=== PATIENT | male | born 1975 | race Caucasian/White ===

== ENCOUNTER 2017-08-21 20:41 | Inpatient (IN) | payer MEDICARE, MEDICAID ==
[~2017-08-21] VITALS: Ht 182.9 cm; Wt 138.3 kg
[~2017-08-21 20:41] MED LIST: CARVEDILOL12.5 MG PO; CLEOCIN HCL150 MG PO; FENTANYL PA50 MCG/HR TRANSDERM; HUMALOG100 UNIT/2 SUBQ; HYDRALAZINE 2525 MG PO; LANTUS100 UNIT/M SUBQ; LEVAQUIN 250 M250 MG PO; LISINOPRIL10 MG PO; NEURONTIN 300300 M1 PO; NORVASC 5 MG TAB5 MG PO; OXYCODONE HCL5 MG PO; OXYCONTIN10 M1 PO; REGLAN 5 MG TAB5 MG PO; TRAMADOL 50 MG50 MG PO
[2017-08-21 21:00] VITALS: BP 191/96
[2017-08-21 22:37] LABS: HEMATOCRIT 30.7 % (42.0-52.0); MCH 32.5 pg (26.0-34.0); MCHC 32.5 g/dL (28.0-37.0); MCV 100.1 fL (80.0-100.0); MPV 6.8 fl. (7.2-11.1); RBC 3.07 mil/uL (4.50-6.00); RDW-CV 16.6 % (10.5-14.5); WBC 6.1 thou/uL (4.0-11.0)
[2017-08-21 22:43] LABS: CALCIUM 8.8 mg/dL (8.5-10.1); CREATININE 11.3 mg/dL (0.6-1.3); POTASSIUM 5.8 mmol/L (3.5-5.1)
[2017-08-21 22:47] LABS: ALBUMIN 2.9 g/dL (3.4-5.0); TOTAL BILIRUBIN 1.2 mg/dL (<0.1-1.0); TOTAL PROTEIN 8.1 g/dL (6.4-8.2)
[2017-08-21 23:45] VITALS: BP 176/99
[2017-08-22 04:00] VITALS: BP 150/81
[2017-08-22 08:06] VITALS: BP 148/83
[2017-08-22 08:44] LABS: URINE BILIRUBIN NEGATIVE (Negative); URINE BLOOD TRACE (Negative); URINE CLARITY CLEAR; URINE COLOR YELLOW; URINE GLUCOSE-RANDOM 1+ (Negative); URINE KETONES NEGATIVE (Negative); URINE LEUKOCYTES-REFLEX NEGATIVE (Negative); URINE NITRITE-REFLEX NEGATIVE (Negative); URINE PROTEIN 3+ (Negative); URINE SPECIFIC GRAVITY 1.015 (1.005-1.030); URINE UROBILINOGEN 0.2 E.U./dl (0.2-1.0)
[2017-08-22 08:54] LABS: AMP/METHAMP Negative (Negative); BARBITURATES Negative (Negative); BENZODIAZEPINES Negative (Negative); COCAINE Negative (Negative); METHADONE Negative (Negative); OPIATES POSITIVE (Negative); PCP Negative (Negative); THC Negative (Negative)
[2017-08-22 09:05] LABS: HYALINE CASTS 0-3 Few /LPF (None Seen); MUCUS 0-3 Light strn/LPF (None Seen); SQUAMOUS >10 Many /LPF (0-3)
[2017-08-22 09:06] LABS: CRYSTALS None Seen /LPF (None Seen); URINE RBC 3-10 Few /HPF (0-2); URINE WBC-REFLEX 6-15 Few /HPF (0-5)
[2017-08-22 09:07] LABS: BACTERIA-REFLEX None Seen /HPF (None Seen)
[2017-08-22 16:45] VITALS: BP 147/83
[2017-08-22 22:00] VITALS: BP 157/84
[2017-08-22 23:01] LABS: HEMATOCRIT 26.9 % (42.0-52.0); HEMOGLOBIN 8.9 gm/dL (14.0-18.0); MCH 32.3 pg (26.0-34.0); MCHC 32.9 g/dL (28.0-37.0); MCV 98.2 fL (80.0-100.0); MPV 6.4 fl. (7.2-11.1); NUCLEATED RBCS 0 /100WBC; PLATELET COUNT* 172 thou/uL (150-400); RBC 2.74 mil/uL (4.50-6.00); RDW-CV 16.1 % (10.5-14.5); WBC 6.5 thou/uL (4.0-11.0)
[2017-08-22 23:34] LABS: ABSOLUTE EOSINOPHILS 0.5 thou/uL (0.0-0.7); ABSOLUTE LYMPHOCYTES 0.8 thou/uL (0.8-5.3); ABSOLUTE MONOCYTES 0.7 thou/uL (0.0-1.2); ABSOLUTE NEUTROPHILS 4.5 thou/uL (1.6-8.1); ANISOCYTOSIS 1+; PLATELET ESTIMATE ADEQUATE; TOXIC GRANULATION 1+
[2017-08-23 04:00] VITALS: BP 155/86
[2017-08-23 05:57] LABS: ABSOLUTE BASOPHILS 0.1 thou/uL (0.0-0.2); ABSOLUTE EOSINOPHILS 0.4 thou/uL (0.0-0.7); ABSOLUTE LYMPHOCYTES 0.9 thou/uL (0.8-5.3); ABSOLUTE MONOCYTES 0.9 thou/uL (0.0-1.2); ABSOLUTE NEUTROPHILS 4.2 thou/uL (1.6-8.1); EOSINOPHILS 5.7 %; HEMATOCRIT 25.3 % (42.0-52.0); HEMOGLOBIN 8.4 gm/dL (14.0-18.0); LYMPHOCYTES 13.4 %; MCH 32.6 pg (26.0-34.0); MCHC 33.2 g/dL (28.0-37.0); MCV 98.3 fL (80.0-100.0); MONOCYTES 13.8 %; MPV 6.7 fl. (7.2-11.1); NUCLEATED RBCS 0 /100WBC; PLATELET COUNT* 172 thou/uL (150-400); POLYS 66.1 %; RBC 2.57 mil/uL (4.50-6.00); RDW-CV 16.6 % (10.5-14.5); WBC 6.4 thou/uL (4.0-11.0)
[2017-08-23 06:34] LABS: CALCIUM 8.4 mg/dL (8.5-10.1); POTASSIUM 4.9 mmol/L (3.5-5.1)
[2017-08-23 08:04] VITALS: BP 145/78
--- NOTE | 2017-08-23 11:52 | CON ---
[address] [address] CONSULTATION Name: SRIDEVI HI Room: [address] IN .R.#: [id number] Admission: 08/21/17 Attend Phys: Uvaldo Vyas MD Discharge: Date of : 75 Report #: [id number] THIS REPORT FOR: //name// CC: Uvaldo Linares CONSULTING PHYSICIAN: Uvaldo Vyas MD. REASON FOR CONSULTATION: End-stage kidney disease. HISTORY OF PRESENT ILLNESS: A 42-year-old gentleman who was admitted with anasarca and also complains of abdominal discomfort. He normally dialyzes Tuesdays, and Saturdays. He otherwise has no complaints at present time. REVIEW OF SYSTEMS: Constitutional, psych, heme, eyes, ENT, respiratory, cardiac, GI, , endocrine, all negative except as documented above. PAST MEDICAL HISTORY: End-stage kidney disease, on hemodialysis Tuesdays, , Saturdays at the [facility] dialysis unit; insulin-dependent diabetes; hypertension; history of diabetic foot ulcers. SOCIAL HISTORY: Former smoker. FAMILY HISTORY: Not pertinent in this 42-year-old gentleman. CURRENT MEDICATIONS: Reviewed. PSYCHIATRIC: Awake, alert. PHYSICAL EXAMINATION: VITAL SIGNS: Blood pressure 148/83, pulse 83, temperature 37.0. GENERAL: No acute distress. EYES: Extraocular movements intact. EARS: Externally normal. CARDIOVASCULAR: Regular rate. LUNGS: Diminished breath sounds. ABDOMEN: Soft. LYMPHATICS: Chronic bilateral lower extremity edema with stasis changes. LABORATORY DATA: White cell count 6.1, hemoglobin 10, platelets 180. Sodium 137, potassium 5.8, chloride 100, bicarbonate 29, BUN 60, creatinine 11.3, glucose 100, calcium 8.8. ASSESSMENT AND PLAN: 1. End-stage kidney disease on hemodialysis Tuesdays, , Saturdays at the [facility] dialysis unit. We will dialyze today [place] [address] CONSULTATION Name: SRIDEVI HI Room: [address] IN [facility].#: [id number] Admission: 08/21/17 Attend Phys: Uvaldo Vyas MD Discharge: Date of : 75 Report #: [id number] dialysis. 2. Hyperkalemia. We will dialyze again with lower potassium bath. 3. Chronic lower extremity edema. Ultrafilter as tolerated. Thank you for requesting my opinion in the care and management of this patient. <ELECTRONICALLY SIGNED> By: Brie Love MD 08/23/17 1152 1233 1937Acesario Love MD /nt
[2017-08-23 12:37] VITALS: BP 149/86
[2017-08-23 16:48] VITALS: BP 137/74
[2017-08-23 20:30] VITALS: BP 156/80
[2017-08-23 23:35] VITALS: BP 166/90
[2017-08-24 04:00] VITALS: BP 170/92
[2017-08-24 05:32] VITALS: BP 177/96
[2017-08-24 06:00] LABS: CALCIUM 8.6 mg/dL (8.5-10.1); PHOSPHORUS* 7.1 mg/dL (2.5-4.9); POTASSIUM 5.1 mmol/L (3.5-5.1)
[2017-08-24 06:02] LABS: CREATININE 10.4 mg/dL (0.6-1.3)
[2017-08-24 08:16] VITALS: BP 175/92
[2017-08-24 14:19] VITALS: BP 175/92
== END 2017-08-24 14:35 | disposition home or self-care (01) | DRG 640 ==
LOC: M.2W 20:41
PROVIDERS: Family Medicine; Internal Medicine Nephrology; ADMIT Internal Medicine
PROC: 5A1D70Z Performance of Urinary Filtration, Intermittent, Less than 6 Hours Per Day (ICD-10-PCS; principal; 2017-08-22)
DX: E87.70 Fluid overload, unspecified (principal); N18.6 End stage renal disease; I12.0 Hypertensive chronic kidney disease with stage 5 chronic kidney disease or end stage renal disease; F11.20 Opioid dependence, uncomplicated; E44.1 Mild protein-calorie malnutrition; R60.1 Generalized edema; Z99.2 Dependence on renal dialysis; E11.22 Type 2 diabetes mellitus with diabetic chronic kidney disease; Z79.4 Long term (current) use of insulin; E87.5 Hyperkalemia; R60.0 Localized edema; F17.210 Nicotine dependence, cigarettes, uncomplicated; Z91.19 Patient's noncompliance with other medical treatment and regimen

== ENCOUNTER 2017-10-06 10:12 | Inpatient (IN) | payer MEDICARE, MEDICAID ==
[~2017-10-06] VITALS: Ht 182.9 cm; Wt 129.3 kg
[2017-10-06 10:18] VITALS: BP 188/101
[2017-10-06 10:44] LABS: HEMATOCRIT 28.2 % (42.0-52.0); HEMOGLOBIN 9.4 gm/dL (14.0-18.0); MCH 31.7 pg (26.0-34.0); MCHC 33.2 g/dL (28.0-37.0); MCV 95.3 fL (80.0-100.0); MPV 6.6 fl. (7.2-11.1); NUCLEATED RBCS 0 /100WBC; PLATELET COUNT* 208 thou/uL (150-400); RBC 2.96 mil/uL (4.50-6.00); RDW-CV 16.8 % (10.5-14.5); WBC 8.5 thou/uL (4.0-11.0)
[2017-10-06 10:50] LABS: CALCIUM 8.4 mg/dL (8.5-10.1)
[2017-10-06 10:52] LABS: POTASSIUM 6.1 mmol/L (3.5-5.1)
[2017-10-06 10:56] LABS: ALBUMIN 2.9 g/dL (3.4-5.0); TOTAL BILIRUBIN 1.2 mg/dL (<0.1-1.0); TOTAL PROTEIN 8.3 g/dL (6.4-8.2); TROPONIN-I LEVEL 0.07 ng/mL (<0.06)
[2017-10-06 10:58] LABS: INR 1.2
[2017-10-06 11:06] LABS: ABSOLUTE BASOPHILS 0.1 thou/uL (0.0-0.2); ABSOLUTE EOSINOPHILS 0.5 thou/uL (0.0-0.7); ABSOLUTE LYMPHOCYTES 0.6 thou/uL (0.8-5.3); ABSOLUTE MONOCYTES 0.8 thou/uL (0.0-1.2); ABSOLUTE NEUTROPHILS 6.5 thou/uL (1.6-8.1); HYPOCHROMASIA 1+; PLATELET ESTIMATE ADEQUATE
[2017-10-06 11:48] VITALS: BP 165/84
[2017-10-06 12:08] VITALS: BP 167/86
--- NOTE | 2017-10-06 16:24 | EKG ---
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 : 1975 Requested By: Jesus Marin Order Number: [id number] MD: Immanuel Malave Measurements Intervals [place] Rate: 93 P: 43 MT: 191 QRS: 27 QRSD: 80 T: 37 QT: 353 QTc: 440 Interpretive Statements Sinus rhythm Probable left atrial enlargement septal q waves Compared to ECG 06/22/2017 13:01:31 septal q waves noted Electronically Signed On 10-06-2017 16:24:30 CDT by Immanuel Malave [email or web address] <ELECTRONICALLY SIGNED> By: Immanuel Malave MD, [facility] 10/06/17 1624 1033 1033 Immanuel Malave MD, [facility] /EPI
[2017-10-06 20:00] VITALS: BP 103/63
[2017-10-07] VITALS: BP 142/68
[2017-10-07 04:00] VITALS: BP 146/77
[2017-10-07 04:59] LABS: ABSOLUTE BASOPHILS 0.1 thou/uL (0.0-0.2); ABSOLUTE EOSINOPHILS 0.4 thou/uL (0.0-0.7); ABSOLUTE LYMPHOCYTES 0.8 thou/uL (0.8-5.3); ABSOLUTE MONOCYTES 0.9 thou/uL (0.0-1.2); ABSOLUTE NEUTROPHILS 4.9 thou/uL (1.6-8.1); BASOPHILS 1.1 %; EOSINOPHILS 6.2 %; HEMATOCRIT 26.8 % (42.0-52.0); LYMPHOCYTES 11.6 %; MCH 31.7 pg (26.0-34.0); MCHC 33.6 g/dL (28.0-37.0); MCV 94.5 fL (80.0-100.0); MONOCYTES 12.4 %; MPV 6.6 fl. (7.2-11.1); NUCLEATED RBCS 0 /100WBC; PLATELET COUNT* 217 thou/uL (150-400); POLYS 68.7 %; RBC 2.84 mil/uL (4.50-6.00); RDW-CV 16.7 % (10.5-14.5); WBC 7.2 thou/uL (4.0-11.0)
[2017-10-07 05:29] LABS: CALCIUM 8.9 mg/dL (8.5-10.1); POTASSIUM 5.5 mmol/L (3.5-5.1)
[2017-10-07 08:05] VITALS: BP 134/78
[2017-10-07 12:10] VITALS: BP 147/77
[2017-10-07 20:00] VITALS: BP 166/89
[2017-10-08 03:57] VITALS: BP 115/58
[2017-10-08 08:15] VITALS: BP 153/86
--- NOTE | 2017-10-08 15:27 | CON ---
[facility] [address] [place] [address] CONSULTATION Name: SRIDVEI HI Room: [facility] IN M.R.#: [id number] Admission: 10/06/17 Attend Phys: Uvaldo Vyas MD Discharge: Date of : 75 Report #: [id number] THIS REPORT FOR: //name// CC: Uvaldo Vyas Gilbert Jacques DATE OF SERVICE: 10/06/2017 REQUESTING PHYSICIAN: Uvaldo Vyas M.D. REASON FOR CONSULTATION: Assistance in providing dialysis. HISTORY OF PRESENT ILLNESS: The patient is a 42-year-old white male with medical history significant for end-stage renal disease, history of noncompliance with dialysis, admitted with fluid overload and my assistance was requested to provide with dialysis. PAST MEDICAL HISTORY: Reviewed. MEDICAL HISTORY: 1. Significant for diabetes mellitus type 2. 2. End-stage renal disease. 3. Hypertension. 4. Recurrent ascites. 5. History of noncompliance. PHYSICAL EXAMINATION: GENERAL: Examined on dialysis. He is awake and alert. VITAL SIGNS: Reviewed. HEENT: Pupils are round. NECK: Supple. LUNGS: Decreased air movements. CARDIOVASCULAR: No pericardial rub. ABDOMEN: Distended, ascites is present. ASSESSMENT: This is a 42-year-old man with end-stage renal disease, admitted with fluid overload. I will provide dialysis while he is in the hospital. <ELECTRONICALLY SIGNED> By: Faraz Upton MD 10/08/17 1527 1507 0227Alexandr Giana Upton MD /nt
[2017-10-08] MEDS ORDERED: GABAPENTIN 100100 MG PO (16:39)
[2017-10-08] MEDS ORDERED: MIRALAX17 GM PO (16:41)
[2017-10-08 16:43] VITALS: BP 153/86
== END 2017-10-08 19:05 | disposition home or self-care (01) | DRG 640 ==
LOC: M.ERS 10:12 → M.2W 11:08 → M.TBA-ER 11:08 → M.2W 11:57
PROVIDERS: Family Medicine; ADMIT Internal Medicine
PROC: 5A1D70Z Performance of Urinary Filtration, Intermittent, Less than 6 Hours Per Day (ICD-10-PCS; principal; 2017-10-06)
DX: E87.79 Other fluid overload (principal); N18.6 End stage renal disease; F11.20 Opioid dependence, uncomplicated; R18.8 Other ascites; I12.0 Hypertensive chronic kidney disease with stage 5 chronic kidney disease or end stage renal disease; E11.22 Type 2 diabetes mellitus with diabetic chronic kidney disease; F17.210 Nicotine dependence, cigarettes, uncomplicated; E87.5 Hyperkalemia; R10.9 Unspecified abdominal pain; G89.29 Other chronic pain; I89.0 Lymphedema, not elsewhere classified; K59.00 Constipation, unspecified; Z99.2 Dependence on renal dialysis; Z79.4 Long term (current) use of insulin; Z91.19 Patient's noncompliance with other medical treatment and regimen

== ENCOUNTER 2017-12-17 10:25 | Inpatient (IN) | payer MEDICARE, MEDICAID ==
[~2017-12-17] VITALS: Ht 180.3 cm; Wt 100.7 kg
[~2017-12-17 10:25] MED LIST changes: +GABAPENTIN 100100 MG PO; +MIRALAX17 GM PO
[2017-12-17 10:26] VITALS: BP 141/71
[2017-12-17 10:42] LABS: ABSOLUTE BASOPHILS 0.1 thou/uL (0.0-0.2); ABSOLUTE EOSINOPHILS 0.3 thou/uL (0.0-0.7); ABSOLUTE MONOCYTES 0.7 thou/uL (0.0-1.2); ABSOLUTE NEUTROPHILS 7.1 thou/uL (1.6-8.1); BASOPHILS 1.3 %; HEMATOCRIT 29.1 % (42.0-52.0); HEMOGLOBIN 9.5 gm/dL (14.0-18.0); LYMPHOCYTES 10.9 %; MCH 30.2 pg (26.0-34.0); MCHC 32.7 g/dL (28.0-37.0); MCV 92.3 fL (80.0-100.0); MONOCYTES 7.5 %; MPV 6.5 fl. (7.2-11.1); NUCLEATED RBCS 0 /100WBC; PLATELET COUNT* 308 thou/uL (150-400); POLYS 77.3 %; RBC 3.15 mil/uL (4.50-6.00); RDW-CV 17.1 % (10.5-14.5); WBC 9.1 thou/uL (4.0-11.0)
[2017-12-17 10:55] LABS: ANION GAP 7 mmol/L (7-16); BUN 69 mg/dL (7-18); CALCIUM 9.2 mg/dL (8.5-10.1); CHLORIDE 97 mmol/L (98-107); CO2 34 mmol/L (21-32); CREATININE 7.9 mg/dL (0.6-1.3); GLUCOSE 125 mg/dL (70-99); POTASSIUM 4.8 mmol/L (3.5-5.1); SODIUM 138 mmol/L (136-145)
[2017-12-17 10:58] LABS: APTT 33.5 Seconds (25.0-31.3); INR 1.4; PROTIME 13.2 Seconds (9.20-11.50)
[2017-12-17 11:07] LABS: ALBUMIN 2.5 g/dL (3.4-5.0); ALKALINE PHOSPHATASE 295 U/L (46-116); NT-PRO BRAIN NAT PEPTIDE > 35000 pg/mL (<300); SGOT 20 U/L (15-37); SGPT 19 U/L (30-65); TOTAL BILIRUBIN 0.9 mg/dL (<0.1-1.0); TOTAL PROTEIN 8.2 g/dL (6.4-8.2); TROPONIN-I LEVEL <0.06 ng/mL (<0.06)
--- NOTE | 2017-12-17 15:16 | EKG ---
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1975 Requested By: Isaac Bolden Order Number: [id number] MD: Immanuel Malave Measurements Intervals [place] Rate: 75 P: 56 IL: 209 QRS: 28 QRSD: 83 T: 34 QT: 404 QTc: 452 Interpretive Statements Sinus rhythm Borderline prolonged IL interval Borderline low voltage, extremity leads Compared to ECG 10/06/2017 10:33:29 no change Electronically Signed On 12-17-2017 15:16:22 CDT by Immanuel Malave [email or web address] <ELECTRONICALLY SIGNED> By: Immanuel Malave MD, [facility] 12/17/17 1516 35 35 Immanuel Maalve MD, [facility] /EPI
[2017-12-17 15:43] VITALS: BP 143/73
[2017-12-17 16:00] VITALS: BP 174/98
[2017-12-17 18:00] VITALS: BP 121/64
[2017-12-17 20:00] VITALS: BP 120/65; BP 125/65
[2017-12-17 22:00] VITALS: BP 134/69
[2017-12-18] VITALS (11 sets, daily range): BP systolic 103–147; BP diastolic 43–71
[2017-12-18 08:10] LABS: HEMATOCRIT 28.1 % (42.0-52.0); HEMOGLOBIN 9.2 gm/dL (14.0-18.0); MCH 30.5 pg (26.0-34.0); MCV 92.6 fL (80.0-100.0); RBC 3.03 mil/uL (4.50-6.00); RDW-CV 17.2 % (10.5-14.5); WBC 9.5 thou/uL (4.0-11.0)
[2017-12-18 08:49] LABS: ALBUMIN 2.2 g/dL (3.4-5.0); CALCIUM 8.5 mg/dL (8.5-10.1); MAGNESIUM 2.1 mg/dL (1.8-2.4); POTASSIUM 4.8 mmol/L (3.5-5.1); TOTAL BILIRUBIN 0.8 mg/dL (<0.1-1.0); TOTAL PROTEIN 7.2 g/dL (6.4-8.2)
[2017-12-18 16:34] LABS: URINE BILIRUBIN NEGATIVE (Negative); URINE BLOOD 1+ (Negative); URINE CLARITY CLOUDY; URINE COLOR YELLOW; URINE GLUCOSE-RANDOM TRACE (Negative); URINE KETONES NEGATIVE (Negative); URINE NITRITE-REFLEX NEGATIVE (Negative); URINE PROTEIN 2+ (Negative); URINE UROBILINOGEN 0.2 E.U./dl (0.2-1.0)
[2017-12-18 16:35] LABS: URINE LEUKOCYTES-REFLEX 3+ (Negative)
[2017-12-18 16:42] LABS: BACTERIA-REFLEX >30 Many /HPF (None Seen); CASTS None Seen /LPF (None Seen); CRYSTALS None Seen /LPF (None Seen); SQUAMOUS 4-10 Moderate /LPF (0-3)
[2017-12-18 16:43] LABS: URINE RBC 0-2 Rare /HPF (0-2); URINE WBC-REFLEX >25 Many /HPF (0-5)
[2017-12-18 16:47] LABS: AMP/METHAMP Negative (Negative); BARBITURATES Negative (Negative); BENZODIAZEPINES Negative (Negative); COCAINE Negative (Negative); METHADONE Negative (Negative); OPIATES POSITIVE (Negative); PCP Negative (Negative); THC Negative (Negative)
[2017-12-19] VITALS (11 sets, daily range): BP systolic 124–163; BP diastolic 44–79
[2017-12-19] MEDS ORDERED: REGLAN 10 MG TA10 MG PO (06:44)
[2017-12-19] MEDS ORDERED: PEPCID20 MG PO (06:45)
[2017-12-19] MEDS ORDERED: TESSALON PERLE100 MG PO (06:46)
[2017-12-19] MEDS ORDERED: SENOKOT8.6 MG PO (06:48)
[2017-12-19] MEDS ORDERED: AMLODIPINE BESYL5 M1 PO (06:48)
[2017-12-19] MEDS ORDERED: TRANSDERM-SCOP1 EACH TRANSDERM (06:51)
[2017-12-19] MEDS ORDERED: RENAL CAPS SOFTG1 MG PO (06:54)
[2017-12-19] MEDS ORDERED: COUMADIN 5 MG TA5 M1 PO (06:55)
[2017-12-19] MEDS ORDERED: RENVELA800 MG PO (06:55)
[2017-12-19] MEDS ORDERED: CLEOCIN HCL150 MG PO (06:57)
[2017-12-19 07:13] LABS: HEMATOCRIT 28.3 % (42.0-52.0); HEMOGLOBIN 9.3 gm/dL (14.0-18.0); MCH 30.1 pg (26.0-34.0); MCHC 32.7 g/dL (28.0-37.0); MCV 92.1 fL (80.0-100.0); MPV 6.6 fl. (7.2-11.1); RBC 3.08 mil/uL (4.50-6.00); RDW-CV 17.2 % (10.5-14.5); WBC 9.2 thou/uL (4.0-11.0)
[2017-12-19 07:27] LABS: ALBUMIN 2.5 g/dL (3.4-5.0); CREATININE 5.6 mg/dL (0.6-1.3); MAGNESIUM 2.2 mg/dL (1.8-2.4); POTASSIUM 4.5 mmol/L (3.5-5.1); TOTAL BILIRUBIN 0.9 mg/dL (<0.1-1.0)
[2017-12-20 09:30] VITALS: BP 131/74
[2017-12-20 11:40] VITALS: BP 118/63
[2017-12-20 15:58] VITALS: BP 159/82
[2017-12-20 19:50] VITALS: BP 116/61
[2017-12-20 22:33] VITALS: BP 122/68
[2017-12-21 03:42] LABS: HEMATOCRIT 23.5 % (42.0-52.0); HEMOGLOBIN 7.7 gm/dL (14.0-18.0); MCH 30.2 pg (26.0-34.0); MCHC 32.6 g/dL (28.0-37.0); MCV 92.7 fL (80.0-100.0); MPV 6.4 fl. (7.2-11.1); RBC 2.54 mil/uL (4.50-6.00); RDW-CV 17.7 % (10.5-14.5)
[2017-12-21 03:58] LABS: MAGNESIUM 1.9 mg/dL (1.8-2.4); POTASSIUM 4.9 mmol/L (3.5-5.1)
[2017-12-21 04:08] LABS: CREATININE 8.6 mg/dL (0.6-1.3)
[2017-12-21 08:40] VITALS: BP 147/84
[2017-12-21] MEDS ORDERED: KEFLEX250 MG PO (09:29)
[2017-12-21 12:00] VITALS: BP 120/54
[2017-12-21 12:13] VITALS: BP 147/84
[2017-12-21 12:29] VITALS: BP 147/84
[2017-12-21 13:43] VITALS: BP 147/84
--- NOTE | 2017-12-23 12:19 | CON ---
[address] [address] CONSULTATION Name: SRIDEVI HI Room: [address] IN ..#: [id number] Admission: 12/17/17 Attend Phys: Alexandra Ryan MD Discharge: 12/21/17 Date of : 75 Report #: [id number] THIS REPORT FOR: //name// CC: Alexandra Ascencioterese Jacques DATE OF SERVICE: 12/18/2017 REQUESTING PHYSICIAN: Dr. Ryan. REASON FOR CONSULTATION: Assist in providing dialysis. HISTORY OF PRESENT ILLNESS: The patient is a 42-year-old white male with medical history significant for end-stage renal disease, history of anasarca and possible liver involvement. In the past, he missed multiple appointments with GI doctor, so I do not have a good diagnosis regarding his liver problems. He also has a history of noncompliance with medical dialysis treatments and fluids and dietary restrictions, presents with opioid overdose. MEDICATIONS: Reviewed. FAMILY HISTORY: Reviewed. SOCIAL HISTORY: Reviewed. PHYSICAL EXAMINATION: GENERAL: He is examined on dialysis. He is confused but awake. VITAL SIGNS: Blood pressure 130/50, heart rate 79, respiratory rate 15, temperature 36.9. HEENT: Pupils are round. NECK: Fatty. LUNGS: Decreased air movement. CARDIOVASCULAR: Regular rate. ABDOMEN: Obese, distended with some free fluid in the belly. EXTREMITIES: Lower extremities with chronic edema. ASSESSMENT: This is a 42-year-old male with end-stage renal disease, admitted for opioid overdose, on dialysis now. He has problems with medical compliance and his long-term prognosis is poor. Thank you very much for asking my assistance providing dialysis for the patient. <ELECTRONICALLY SIGNED> By: Faraz Upton MD 12/23/17 1219 1106 1340Alexajordan Upton MD /nt
== END 2017-12-21 13:50 | disposition home health service (06) | DRG 91 ==
LOC: M.ERS 10:25 → M.ICU 13:11 → M.TBA-ER 13:11 → M.ICU 16:05 → M.3W 12-19 17:49
PROVIDERS: Emergency Medicine Emergency Medical Services; ADMIT Internal Medicine
PROC: 5A1D70Z Performance of Urinary Filtration, Intermittent, Less than 6 Hours Per Day (ICD-10-PCS; principal; 2017-12-17)
PROC: 5A1D70Z Performance of Urinary Filtration, Intermittent, Less than 6 Hours Per Day (ICD-10-PCS; 2017-12-18)
DX: G92 Toxic encephalopathy (principal); N18.6 End stage renal disease; I12.0 Hypertensive chronic kidney disease with stage 5 chronic kidney disease or end stage renal disease; E11.22 Type 2 diabetes mellitus with diabetic chronic kidney disease; T40.2X5A Adverse effect of other opioids, initial encounter; E11.621 Type 2 diabetes mellitus with foot ulcer; F17.210 Nicotine dependence, cigarettes, uncomplicated; Z91.14 Patient's other noncompliance with medication regimen; Y92.89 Other specified places as the place of occurrence of the external cause; Z99.2 Dependence on renal dialysis; Z79.4 Long term (current) use of insulin

== ENCOUNTER 2017-12-26 10:44 | Inpatient (IN) | payer MEDICARE, MEDICAID ==
[~2017-12-26] VITALS: Ht 152.4 cm; Wt 102.5 kg
[2017-12-26 00:13] VITALS: BP 129/68
[~2017-12-26 10:44] MED LIST changes: +AMLODIPINE BESYL5 M1 PO; +COUMADIN 5 MG TA5 M1 PO; +KEFLEX250 MG PO; +PEPCID20 MG PO; +REGLAN 10 MG TA10 MG PO; +RENAL CAPS SOFTG1 MG PO; +RENVELA800 MG PO; +SENOKOT8.6 MG PO; +TESSALON PERLE100 MG PO; +TRANSDERM-SCOP1 EACH TRANSDERM
[2017-12-26 10:47] VITALS: BP 129/73
[2017-12-26 11:06] LABS: ABSOLUTE BASOPHILS 0.1 thou/uL (0.0-0.2); ABSOLUTE EOSINOPHILS 0.4 thou/uL (0.0-0.7); ABSOLUTE NEUTROPHILS 6.7 thou/uL (1.6-8.1); BASOPHILS 1.1 %; EOSINOPHILS 4.8 %; HEMATOCRIT 23.1 % (42.0-52.0); HEMOGLOBIN 7.7 gm/dL (14.0-18.0); LYMPHOCYTES 10.9 %; MCH 31.5 pg (26.0-34.0); MCHC 33.2 g/dL (28.0-37.0); MCV 94.8 fL (80.0-100.0); MONOCYTES 11.2 %; MPV 6.5 fl. (7.2-11.1); NUCLEATED RBCS 0 /100WBC; PLATELET COUNT* 236 thou/uL (150-400); RBC 2.44 mil/uL (4.50-6.00); RDW-CV 19.9 % (10.5-14.5); WBC 9.4 thou/uL (4.0-11.0)
[2017-12-26 11:16] LABS: ANION GAP 11 mmol/L (7-16); BUN 72 mg/dL (7-18); CALCIUM 8.9 mg/dL (8.5-10.1); CHLORIDE 96 mmol/L (98-107); CO2 27 mmol/L (21-32); CREATININE 7.7 mg/dL (0.6-1.3); GLUCOSE 132 mg/dL (70-99); POTASSIUM 5.3 mmol/L (3.5-5.1); SODIUM 134 mmol/L (136-145)
[2017-12-26 11:31] LABS: ALBUMIN 2.8 g/dL (3.4-5.0); ALKALINE PHOSPHATASE 242 U/L (46-116); LIPASE 106 U/L (73-393); SGOT 19 U/L (15-37); SGPT 29 U/L (30-65); TOTAL BILIRUBIN 0.7 mg/dL (<0.1-1.0); TOTAL PROTEIN 8.3 g/dL (6.4-8.2); TROPONIN-I LEVEL <0.06 ng/mL (<0.06)
[2017-12-26 13:57] LABS: INR 1.3; PROTIME 12.5 Seconds (9.20-11.50)
[2017-12-26 14:43] VITALS: BP 139/74
[2017-12-27] VITALS: BP 124/70
[2017-12-27 04:00] VITALS: BP 133/56
[2017-12-27 05:23] LABS: MCH 31.5 pg (26.0-34.0); MCHC 33.2 g/dL (28.0-37.0); MPV 6.7 fl. (7.2-11.1); RBC 2.52 mil/uL (4.50-6.00); RDW-CV 19.3 % (10.5-14.5); WBC 7.2 thou/uL (4.0-11.0)
[2017-12-27 05:57] LABS: ALBUMIN 2.7 g/dL (3.4-5.0); CALCIUM 8.9 mg/dL (8.5-10.1); MAGNESIUM 2.1 mg/dL (1.8-2.4); PHOSPHORUS* 6.1 mg/dL (2.5-4.9)
[2017-12-27 06:08] LABS: CREATININE 6.6 mg/dL (0.6-1.3)
[2017-12-27 09:20] VITALS: BP 130/72
[2017-12-27 11:29] VITALS: BP 117/66
--- NOTE | 2017-12-27 11:52 | EKG ---
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[place] : 1975 Requested By: Isaac Bolden Order Number: [id number] MD: Filippo Lee Measurements Intervals [place] Rate: 90 P: 42 FL: 194 QRS: 25 QRSD: 89 T: 35 QT: 358 QTc: 438 Interpretive Statements Sinus rhythm Probable left atrial enlargement Baseline wander in lead(s) II,aVR Compared to ECG 12/17/2017 10:36:46 No significant changes Electronically Signed On 12-27-2017 11:52:21 CDT by Filippo Lee [email or web address] <ELECTRONICALLY SIGNED> By: Filippo Lee MD, [facility] 12/27/17 1152 1059 1059 Filippo Lee MD, [facility] /EPI
[2017-12-27 15:22] VITALS: BP 140/74
[2017-12-27 20:00] VITALS: BP 128/68
[2017-12-27 21:01] LABS: CALCIUM 8.9 mg/dL (8.5-10.1); CREATININE 7.4 mg/dL (0.6-1.3); POTASSIUM 5.7 mmol/L (3.5-5.1)
--- NOTE | 2017-12-27 23:22 | CON ---
[address] [address] CONSULTATION Name: SRIDEVI ORONA Room: [address] IN [facility].#: [id number] Admission: 12/26/17 Attend Phys: Gino Salas, Discharge: Date of : 75 Report #: [id number] THIS REPORT FOR: //name// CC: ANNETTE physician/PCP Gino Salas DATE OF SERVICE: 12/27/2017 CONSULTATION: Infectious Diseases. HISTORY OF PRESENT ILLNESS: Sridevi Orona is a 42-year-old dialysis patient who comes to the hospital because of intractable abdominal pain due to fluid retention and increased edema due to fluid retention. This has been a chronic problem for this patient; he has had several admissions, even one time for unintentional drug overdose trying to deal with his abdominal pain. The chart notes he is not compliant with fluid restriction, although he does come to every dialysis. His last dialysis was cut short due to abdomenal pain. On presentation to the hospital, the patient was noted to have a chronic diabetic foot wound on his right fifth metatarsal head. For this reason, Infectious Disease consultation was requested. The patient has a history of diabetes, although this pretty much resolved with weight loss and the patient currently requires no medication. He does not check hemoglobin A1c, but says that his sugars have always been good. He has end-stage renal disease. The patient does not know why his kidneys failed. The patient denies any visual problems, denies any circulation problems. He denies any neuropathy problems, although his reliability and insight into his condition is not very good. MEDICATION RECONCILIATION: Current medications at this time include warfarin 5 mg daily, folic acid 1 mg daily, senna 1 tablet b.i.d., MiraLax 17 grams daily, famotidine 20 mg daily, amlodipine 5 mg daily, sevelamer 800 mg twice a day, metoclopramide 10 mg 4 times a day, benzonatate 100 mg t.i.d., scopolamine patch every 72 hours, hydralazine 25 mg p.o. p.r.n. q.i.d., morphine p.r.n. The patient has been started on cephalexin last week, but this was discontinued when the patient came to the hospital. He has received 1 dose of vancomycin and Zosyn. FAMILY HISTORY: Noncontributory. SOCIAL HISTORY: The patient is . He lives with his mother in [place], [place]. He does smoke cigarettes, but is down to about a 1/4 pack per day. No current use of alcohol. REVIEW OF SYSTEMS: At this time, the patient really has no complaints. He says his pain is under good control with the current regimen. He denies fevers, [place] [address] CONSULTATION Name: SRIDEVI ORONA Room: [address]#: [id number] Admission: 12/26/17 Attend Phys: Gino Salas, Discharge: Date of : 75 Report #: [id number] chills, sweats. He denies any head or neck complaints. Denies any cough, chest pain, shortness of breath. He did have nausea and vomiting with dry heaves and sore throat, but this has resolved. He has chronic constipation. He is on dialysis. He has chronic pain from his legs associated with edema and stasis. PHYSICAL EXAMINATION: GENERAL: The patient appears his stated age, alert, oriented, comfortable, not in any distress. VITAL SIGNS: Show the patient is afebrile. SKIN: Shows chronic erythema and possibly superimposed erythema on both lower extremities. There are venous stasis changes with dilated veins, hyperpigmentation, almost purplish discoloration. There is a minimal dyshidrosis. 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 There is no erythema around this area. ENT: Negative. HEART: Sounds normal. LUNGS: Clear. ABDOMEN: Belly obese, soft, nontender. EXTREMITIES: Edematous. LABORATORY DATA: White count is 7.2, hemoglobin 8.0, hematocrit 24%, platelets 240,000. Electrolytes: Sodium 134, potassium 6.0, chloride 96, bicarbonate 29, BUN 56, creatinine 6.6, glucose 126. Liver function tests show alkaline phosphatase elevated at 242 (it was 485 when the patient was hospitalized here on 10/06/2017). SGOT and SGPT are normal. Troponin is normal. The BNP on 12/17/2017 was over 35,000. The plain film of the left foot shows absence of the fifth metatarsal head. The radiologist cannot tell this was surgical or infection. The patient says he has had surgery at [facility] in [place], [place] on his feet and thinks they may have removed metatarsal heads. IMPRESSION: 1. Abdominal pain due to anasarca, leg pain due to edema, possibly with a cellulitic component. 2. Incidental chronic foot wound, pretty much in neglect. PLAN: The patient received vancomycin and Zosyn. We will probably continue vancomycin for now. I will obtain a vancomycin random level tomorrow. We can dose appropriately with his dialysis. I would like to obtain an MRI of the left foot to try to further clarify whether this is surgical or infection changes in the bone. The patient does have osteomyelitis. He will require a long course of vancomycin probably given with dialysis. The patient will need to make pains to try to offload the foot. He currently does not use any diabetic foot wear, I am not even sure he even dresses the wound. For now, we will use Santyl and gauze. The patient should have evaluation by Podiatry [place] [address] CONSULTATION Name: SRIDEVI ORONA Room: [address] IN [facility]#: [id number] Admission: 12/26/17 Attend Phys: Gino Salas, Discharge: Date of : 75 Report #: [id number] would like to look for metabolic impediments to poor wound healing such as low thyroid, elevated BNP, low prealbumin, low zinc. I would like to check a hemoglobin A1c. We can do a culture of the wound to see if there is any resistant evelio, which may further direct antibiotic therapy. I appreciate the opportunity of input in the care of the patient. Dr. Wylie will return tomorrow for further followup. Thank you for this consultation. <ELECTRONICALLY SIGNED> By: Sridevi Story MD 12/27/17 2322 1208 1418Jobelinda Story MD /nt
[2017-12-28] VITALS: BP 132/78
[2017-12-28 04:00] VITALS: BP 121/62
[2017-12-28 05:28] LABS: HEMATOCRIT 22.9 % (42.0-52.0); HEMOGLOBIN 7.6 gm/dL (14.0-18.0); MCH 31.5 pg (26.0-34.0); MCHC 33.1 g/dL (28.0-37.0); MCV 95.1 fL (80.0-100.0); MPV 6.8 fl. (7.2-11.1); RBC 2.41 mil/uL (4.50-6.00); RDW-CV 20.2 % (10.5-14.5); WBC 7.5 thou/uL (4.0-11.0)
[2017-12-28 05:52] LABS: CALCIUM 9.3 mg/dL (8.5-10.1); MAGNESIUM 2.4 mg/dL (1.8-2.4); POTASSIUM 5.4 mmol/L (3.5-5.1)
[2017-12-28 08:00] VITALS: BP 139/77
[2017-12-28 11:30] VITALS: BP 146/87
[2017-12-28 14:39] LABS: BF RBC 1987 /mm3; TOTAL CELL COUNT 930 /mm3
[2017-12-28 15:05] LABS: CLARITY CLEAR; COLOR COLORLESS; TOTAL VOLUME 2600 ml
[2017-12-28 15:33] LABS: BF LYMPHOCYTES 43 %; BF MONOCYTES 5 %; BF POLYS 52 %; BF TISSUE 78 /100 WBC
[2017-12-28 15:34] LABS: SOURCE ASCITES
[2017-12-28 16:00] VITALS: BP 152/76
[2017-12-28 20:00] VITALS: BP 153/79
[2017-12-29] VITALS: BP 132/69
[2017-12-29 02:07] LABS: GLYCOHEMOGLOBIN (HGB A1C) 4.6 % (4.8-5.6)
[2017-12-29 04:00] VITALS: BP 134/71
[2017-12-29 05:32] LABS: HEMATOCRIT 24.3 % (42.0-52.0); HEMOGLOBIN 7.9 gm/dL (14.0-18.0); MCH 30.9 pg (26.0-34.0); MCHC 32.7 g/dL (28.0-37.0); MCV 94.6 fL (80.0-100.0); MPV 6.6 fl. (7.2-11.1); RBC 2.57 mil/uL (4.50-6.00); RDW-CV 20.3 % (10.5-14.5); WBC 7.7 thou/uL (4.0-11.0)
[2017-12-29 05:44] LABS: CALCIUM 8.6 mg/dL (8.5-10.1); MAGNESIUM 2.2 mg/dL (1.8-2.4); POTASSIUM 5.7 mmol/L (3.5-5.1)
[2017-12-29 06:02] LABS: CREATININE 9.2 mg/dL (0.6-1.3)
[2017-12-29 08:00] VITALS: BP 130/72
[2017-12-29 14:24] LABS: INR 1.3; PROTIME 12.6 Seconds (9.20-11.50)
[2017-12-29 14:27] LABS: POTASSIUM 4.1 mmol/L (3.5-5.1)
[2017-12-29 16:00] VITALS: BP 114/54
[2017-12-29 20:00] VITALS: BP 140/73
[2017-12-30] VITALS (7 sets, daily range): BP systolic 119–154; BP diastolic 62–76
[2017-12-30 04:48] LABS: INR 1.4; PROTIME 13.4 Seconds (9.20-11.50)
[2017-12-30 04:50] LABS: HEMATOCRIT 22.9 % (42.0-52.0); HEMOGLOBIN 7.5 gm/dL (14.0-18.0); MCH 31.1 pg (26.0-34.0); MCHC 32.9 g/dL (28.0-37.0); MCV 94.6 fL (80.0-100.0); MPV 6.7 fl. (7.2-11.1); RBC 2.42 mil/uL (4.50-6.00); RDW-CV 20.2 % (10.5-14.5); WBC 5.9 thou/uL (4.0-11.0)
[2017-12-30 05:12] LABS: ALBUMIN 2.5 g/dL (3.4-5.0); CALCIUM 8.5 mg/dL (8.5-10.1); POTASSIUM 4.2 mmol/L (3.5-5.1); TOTAL BILIRUBIN 0.8 mg/dL (<0.1-1.0); TOTAL PROTEIN 7.7 g/dL (6.4-8.2)
[2017-12-30 07:06] LABS: BODY FLUID LDH 163 IU/L (()); BODY FLUID PROTEIN 4.8 g/dL (())
--- NOTE | 2017-12-30 14:45 | CON ---
[address] [address] CONSULTATION Name: SRIDEVI HI Room: [address] IN [facility]#: [id number] Admission: 12/26/17 Attend Phys: Gino Salas, Discharge: Date of : 75 Report #: [id number] THIS REPORT FOR: //name// CC: ANNETTE physician/PCP Gino Salas DATE OF SERVICE: 12/27/2017 REASON FOR CONSULT: Abdominal pain and ascites. HISTORY OF PRESENT ILLNESS: This is a 42-year-old male with history of end-stage renal disease and gastroparesis who presents with abdominal pain. The patient gets dialyzed 3 times a day and his last dialysis was yesterday. He denies any nausea, vomiting, dyspepsia, GERD, diarrhea, or constipation. He complains of generalized abdominal pain and reports that his abdomen got distended over the last 4-5 days. He also has anasarca and significant lower extremity edema. PAST MEDICAL HISTORY: Significant for history of chronic kidney disease, metabolic encephalopathy, gastroparesis, GERD, hypertension, diabetes, diabetic ulcer. ALLERGIES: No known drug allergy. MEDICATIONS: Please refer to hospital MAR. SOCIAL HISTORY: The patient has history of alcohol use, but no longer drinks. Also, denies use of drugs. He continues to smoke. FAMILY HISTORY: Significant for COPD. PHYSICAL EXAMINATION: VITAL SIGNS: Reveals blood pressure of 130/72, respirations 16, pulse 86, temperature 98.1. LUNGS: Clear. CARDIOVASCULAR: Regular. ABDOMEN: Soft, mildly distended with positive fluid shift. Abdomen is tender to palpation in all 4 quadrants. NEUROLOGIC: The patient is alert, oriented x 3. LABORATORY DATA: Reveal sodium of 134, potassium 6.0, BUN is 56, creatinine 6.6, glucose 126, AST is 19, ALT is 29, alkaline phosphatase 242. Total bilirubin 0.7, albumin is 2.7. WBC is 7.2 with hemoglobin of 8 and platelets of 240. IMAGING: CT of abdomen and pelvis was obtained [place]. [place] [address] CONSULTATION Name: SRIDEVI HI Room: [address] IN [facility].#: [id number] Admission: 12/26/17 Attend Phys: Gino Salas, Discharge: Date of : 75 Report #: [id number] significant for moderate amount of diffuse abdomen and pelvic ascites. Also, there is a moderate retroperitoneal adenopathy noted. There is no evidence of bowel obstruction. ASSESSMENT AND PLAN: The patient with anasarca and ascites, which he reports has developed in the last several days. His liver function tests are normal except mild elevation of alkaline phosphatase. There is some retroperitoneal adenopathy and pelvic ascites. We will recommend diffuse abdominal and pelvic ascites. We would recommend paracenteses with cell count, cytology, albumin, protein and LDH levels. We will make further recommendation once these values are available. <ELECTRONICALLY SIGNED> By: Pedro Wilkins MD 12/30/17 1445 1003 1211Pedro Wilkins MD /nt
[2017-12-30 16:13] LABS: IgG 2169 mg/dL (700-1600); IgM 103 mg/dL (20-172)
[2017-12-31] VITALS: BP 121/64
[2017-12-31 04:00] VITALS: BP 133/70
[2017-12-31 04:52] LABS: HEMATOCRIT 25.2 % (42.0-52.0); HEMOGLOBIN 8.3 gm/dL (14.0-18.0); MCV 93.9 fL (80.0-100.0); MPV 6.5 fl. (7.2-11.1); RBC 2.68 mil/uL (4.50-6.00); RDW-CV 20.4 % (10.5-14.5); WBC 6.9 thou/uL (4.0-11.0)
[2017-12-31 04:59] LABS: INR 1.4; PROTIME 13.9 Seconds (9.20-11.50)
[2017-12-31 05:07] LABS: CALCIUM 8.4 mg/dL (8.5-10.1); MAGNESIUM 2.2 mg/dL (1.8-2.4); POTASSIUM 5.1 mmol/L (3.5-5.1)
[2017-12-31 05:26] LABS: CREATININE 7.5 mg/dL (0.6-1.3)
[2017-12-31 08:05] VITALS: BP 125/70
[2017-12-31 09:24] LABS: SOURCE ABDOMINAL
[2017-12-31 18:36] VITALS: BP 124/63
[2017-12-31 20:00] VITALS: BP 131/65
[2017-12-31 23:30] VITALS: BP 132/66
[2018-01-01 03:30] VITALS: BP 135/66
[2018-01-01 04:44] LABS: HEMATOCRIT 22.4 % (42.0-52.0); HEMOGLOBIN 7.4 gm/dL (14.0-18.0); MCH 31.2 pg (26.0-34.0); MCHC 33.1 g/dL (28.0-37.0); MCV 94.2 fL (80.0-100.0); MPV 6.5 fl. (7.2-11.1); RBC 2.38 mil/uL (4.50-6.00); RDW-CV 20.4 % (10.5-14.5); WBC 7.2 thou/uL (4.0-11.0)
[2018-01-01 04:54] LABS: INR 1.3; PROTIME 12.9 Seconds (9.20-11.50)
[2018-01-01 05:11] LABS: CALCIUM 8.3 mg/dL (8.5-10.1); POTASSIUM 4.2 mmol/L (3.5-5.1)
[2018-01-01 05:14] LABS: CREATININE 5.6 mg/dL (0.6-1.3)
[2018-01-01 08:00] VITALS: BP 129/69
[2018-01-01 11:09] VITALS: BP 133/78
[2018-01-01 13:08] LABS: ANA INTERPRETATION Negative (Negative)
[2018-01-01 15:26] VITALS: BP 137/65
[2018-01-01 20:00] VITALS: BP 136/69
[2018-01-02] VITALS: BP 142/73
[2018-01-02 03:54] LABS: HEMATOCRIT 21.3 % (42.0-52.0); HEMOGLOBIN 7.3 gm/dL (14.0-18.0); MCH 31.9 pg (26.0-34.0); MCHC 34.1 g/dL (28.0-37.0); MCV 93.5 fL (80.0-100.0); MPV 6.6 fl. (7.2-11.1); RBC 2.28 mil/uL (4.50-6.00); RDW-CV 20.1 % (10.5-14.5)
[2018-01-02 04:00] VITALS: BP 133/77
[2018-01-02 04:03] LABS: INR 1.3; PROTIME 12.6 Seconds (9.20-11.50)
[2018-01-02 04:17] LABS: CALCIUM 8.4 mg/dL (8.5-10.1); MAGNESIUM 2.2 mg/dL (1.8-2.4); POTASSIUM 4.5 mmol/L (3.5-5.1)
[2018-01-02 04:20] LABS: CREATININE 7.1 mg/dL (0.6-1.3)
[2018-01-02 07:30] VITALS: BP 134/64
[2018-01-02 11:33] VITALS: BP 137/73
[2018-01-02 12:31] LABS: BE 5.6 mmol/L (-2 to +3); HCO3 30.2 mmol/L (22.0-26.0); PCO2 44.3 mmHg (35.0-45.0); pH 7.451 (7.340-7.450)
[2018-01-02 20:00] VITALS: BP 135/78
[2018-01-03] VITALS: BP 133/69
[2018-01-03 04:00] VITALS: BP 128/65
[2018-01-03 05:39] LABS: INR 1.3; PROTIME 12.3 Seconds (9.20-11.50)
[2018-01-03 05:41] LABS: HEMATOCRIT 23.4 % (42.0-52.0); HEMOGLOBIN 7.7 gm/dL (14.0-18.0); MCH 30.9 pg (26.0-34.0); MCHC 32.8 g/dL (28.0-37.0); MPV 6.7 fl. (7.2-11.1); RBC 2.49 mil/uL (4.50-6.00); RDW-CV 19.5 % (10.5-14.5); WBC 6.7 thou/uL (4.0-11.0)
[2018-01-03 05:56] LABS: CALCIUM 9.1 mg/dL (8.5-10.1); MAGNESIUM 2.1 mg/dL (1.8-2.4); POTASSIUM 4.2 mmol/L (3.5-5.1)
[2018-01-03 07:30] VITALS: BP 121/63
--- NOTE | 2018-01-03 10:45 | CON ---
[address] [address] CONSULTATION Name: SRIDEVI HI Room: [address] IN .R.#: [id number] Admission: 12/26/17 Attend Phys: Gino Salas, Discharge: Date of : 75 Report #: [id number] THIS REPORT FOR: //name// CC: ANNETTE physician/PCP Gino Salas DATE OF SERVICE: 12/28/2017 REQUESTING PHYSICIAN: Gino Salas MD. REASON FOR CONSULTATION: Assistance providing dialysis. HISTORY OF PRESENT ILLNESS: The patient is a 42-year-old man with medical history significant for end-stage renal disease. The patient is on dialysis on Thursday, , and Thursday schedule. The patient in frequently coming to the hospital; last time I saw him was in 12/17/2017, just 11 days ago. The patient again admitted for complaints of his abdominal pain. He was seen by Dr. Wylie, Infectious Disease doctor and his assessment was abdominal pain and bilateral lower extremities inflammatory eruption. The patient was started on empiric antibiotics. He will be dialyzed tomorrow. PAST MEDICAL HISTORY, SOCIAL HISTORY AND FAMILY HISTORY: See alexsander oneal previous dictation from this month. MEDICATIONS: Reviewed. PHYSICAL EXAMINATION: GENERAL: He is awake, alert and oriented. VITAL SIGNS: His blood pressure is 121/62, heart rate is 84, afebrile. HEENT: Pupils are round. NECK: Elevated JVD. LUNGS: Decreased breath sounds. CARDIOVASCULAR: Regular rate. ABDOMEN: Distended, free ascitic fluid present. LOWER EXTREMITIES: With chronic 4+ edema. ASSESSMENT AND PLAN: End-stage renal disease patient. I will dialyze him tomorrow. The rest of the problems will be handled by primary care physician. <ELECTRONICALLY SIGNED> By: Faraz Upton MD 01/03/18 1045 1123 0036Alexnoemi Upton MD /nt
[2018-01-03 11:10] VITALS: BP 132/69
[2018-01-03 15:33] VITALS: BP 128/65
[2018-01-03 20:42] VITALS: BP 138/77
[2018-01-04 00:22] VITALS: BP 136/53
[2018-01-04 04:16] LABS: INR 1.3; PROTIME 12.2 Seconds (9.20-11.50)
[2018-01-04 04:50] VITALS: BP 137/82
[2018-01-04 08:00] VITALS: BP 137/71
[2018-01-04 11:18] VITALS: BP 137/74
[2018-01-04 15:24] VITALS: BP 141/72
--- NOTE | 2018-01-04 16:04 | 2DMMODE ---
[place] [address] 2 D/M-MODE ECHOCARDIOGRAM Name: SRIDEVI HI Room: [address] IN [facility]#: [id number] Admission: 12/26/17 Attend Phys: Gino Her Discharge: Date of : 75 Date of Service: 01/04/18 1539 Report #: [id number] THIS REPORT FOR: //name// APPROVED REPORT Study performed: 01/04/2018 10:35:17 EXAM: Comprehensive 2D, Doppler, and color-flow Echocardiogram Patient Location: In-Patient Room #: [facility] Status: routine BSA: 2.07 HR: 80 bpm BP: 137/82 mmHg Rhythm: NSR Other Information Study Quality: Good Indications Aortic Valve Disease 2D Dimensions LVEF(%): 61.86 (>50%) IVSd: 14.10 (7-11mm) LVOT Diam: 24.39 (18-24mm) LVDd: 51.54 mm PWd: 13.71 (7-11mm) Ascending Ao: 34.94 (22-36mm) LVDs: 34.29 (25-40mm) Aortic Root: 34.89 mm Miller's LVEF: 61.86 % Volumes Left Atrial Volume (Systole) LA ESV Index: 42.20 mL/m2 Aortic Valve AoV Peak Abraham.: 3.76 m/s AO Peak Gr.: 56.68 mmHg LVOT Max P.20 mmHg AO Mean Gr.: 34.49 mmHg LVOT Mean P.83 mmHg LVOT Max V: 0.89 m/s AO V2 VTI: 83.30 cm LVOT Mean V: 0.64 m/s WANG (VTI): 1.14 cm2 LVOT V1 VTI: 20.31 cm AI Wilbarger: 5.21 m/s2 AI PHT: 261.47 [place] [address] 2 D/M-MODE ECHOCARDIOGRAM Name: SRIDEVI HI Room: [address] IN [facility]#: [id number] Admission: 12/26/17 Attend Phys: Gino Her Discharge: Date of : 75 Date of Service: 01/04/18 1539 Report #: [id number] Mitral Valve E/A Ratio: 1.72 MV Decel. Time: 260.80 ms MV E Max Abraham.: 1.30 m/s MV PHT: 75.63 ms MVA (PHT): 2.91 cm2 TDI E/Lateral E': 10.83 E/Medial E': 11.82 Medial E' Abraham.: 0.11 m/s Lateral E' Abraham.: 0.12 m/s Pulmonary Valve PV Peak Abraham.: 1.00 m/s PV Peak Gr.: 3.97 mmHg Tricuspid Valve TR Peak Gr.: 33.75 mmHg RVSP: 48.00 mmHg Left Ventricle The left ventricle is normal size. There is normal LV segmental wall motion. Mild concentric left ventricular hypertrophy. Left ventricular systolic function is normal. The left ventricular ejection fraction is within the normal range. LVEF is 60-65%. Grade III - reversible restrictive diastolic dysfunction. Right Ventricle The right ventricle is normal size. The right ventricular systolic function is normal. Atria Left atrium is mild to moderately dilated. The right atrium size is normal. Aortic Valve Moderate aortic valve sclerosis. Moderate aortic regurgitation. Moderate aortic stenosis. Mitral Valve The mitral valve is normal in structure. Mild mitral regurgitation. No evidence of mitral valve stenosis. Tricuspid Valve The tricuspid valve is normal in structure. Mild tricuspid regurgitation. The RVSP is 45-50 [place] [address] 2 D/M-MODE ECHOCARDIOGRAM Name: SRIDEVI HI Room: [address]#: [id number] Admission: 12/26/17 Attend Phys: Gino Her Discharge: Date of : 75 Date of Service: 01/04/18 1539 Report #: [id number] The pulmonary valve is normal in structure. Mild pulmonic regurgitation. Great Vessels The aortic root is normal in size. IVC is dilated and collapses <50% with inspiration. Pericardium There is no pericardial effusion. <Conclusion> Mild concentric left ventricular hypertrophy. LVEF is 60-65%. Left atrium is mild to moderately dilated. Moderate aortic stenosis. Moderate aortic regurgitation. Mild mitral regurgitation. Mild tricuspid regurgitation. The RVSP is 45-50 mmHg. <ELECTRONICALLY SIGNED> By: Immanuel Malave MD, [facility] 01/04/18 1539 1539 1539 Immanuel Malave MD, FACC /INF
[2018-01-04 20:00] VITALS: BP 124/84; BP 147/75
[2018-01-05] VITALS: BP 142/72
[2018-01-05 04:00] VITALS: BP 143/71
[2018-01-05 08:20] VITALS: BP 149/84
[2018-01-05 08:27] LABS: INR 1.3; PROTIME 12.7 Seconds (9.20-11.50)
--- NOTE | 2018-01-05 09:09 | PATH ---
[address] [address] PATHOLOGY RPT PROCEDURE Name: SRIDEVI HI Room: [address] IN [facility]#: [id number] Admission: 12/26/17 Date of : 75 Discharge: Report #: [id number] Path Case #: [id number] Note [facility] Accession Number: [id number] TESTS RESULT FLAG UNITS REF RANGE LAB Clinician Provided Cytology Information No. of containers..01 Other (Miscellaneous) Source: ABDOMINAL FLUID DIAGNOSIS: 02 ABDOMINAL FLUID NEGATIVE FOR MALIGNANT CELLS. THIS INTERPRETATION INCLUDES EVALUATION OF A CELL BLOCK. Signed out by: 02 Anup Miller MD, Pathologist NPI- [id number] Performed by: 02 Uyen Olivera, Collection Specialist ([facility]) Gross description: 01 50ML, YELLOW/ORANGE, CLOUDY /LCS FLAG LEGEND: L-Low Normal,H-High Normal,LL-Alert Low,HH-Alert High <-Panic Low,>-Panic High,A-Abnormal,AA-Critical Abnormal Performed at: [address] [place] [address] Pascual Reddy MD, [address] [place] [id number] Anup Miller MD, A duplicate report has been generated due to demographic updates. Performed at: [address], [place], [place] [id number] MD Pascual Reddy MD Phone: [phone]
[2018-01-05] MEDS ORDERED: VANC750 IV (12:52)
[2018-01-05] MEDS ORDERED: OXYCODONE HCL 55 MG PO (12:54)
[2018-01-05 12:56] VITALS: BP 149/84
[2018-01-05 13:26] VITALS: BP 127/66
--- NOTE | 2018-01-13 13:47 | CON ---
[facility] [address] [place] [address] CONSULTATION Name: SRIDEVI HI Room: [address] IN [facility].#: [id number] Admission: 12/26/17 Attend Phys: Gino Salas, Discharge: 01/05/18 Date of : 75 Report #: [id number] THIS REPORT FOR: //name// CC: ANNETTE physician/PCP Gino Salas DATE OF SERVICE: 12/31/2017 CHIEF COMPLAINT: Postoperative day #1 for resection left distal fifth metatarsal and toe for nonhealing ulceration. He relates moderate pain controlled with parenteral morphine and p.o. medication. He is on parenteral vancomycin per Dr. Wylie. Surgical bone and tissue cultures pending. He has been afebrile, denies fevers, chills or malaise. LABORATORY DATA: WBC 6.9, RBC 2.68, hemoglobin 8.3, hematocrit 25.2, platelets 201. PHYSICAL EXAMINATION: Incision is well approximated with no dehiscence, necrosis or cardinal signs of infection. The plantar ulceration has viable tissue with no necrosis. No underlying fluctuance or crepitation. IMPRESSION: Status post resection, left distal fifth ray. PLAN: I debrided the plantar wound with a curette to remove subcutaneous tissue, slough and debris. It was cleansed and packed with Aquacel Ag and wrapped with ABDs, Kerlix and Samson wrap. The patient may be weightbearing to the foot in a surgical shoe for transfers only. I wrote order for PT and OT. <ELECTRONICALLY SIGNED> By: Harvey Holland DPM 01/13/18 1347 1713 0104Daudelia Holland DPM /nt
--- NOTE | 2018-01-13 13:47 | CON ---
[address] [address] CONSULTATION Name: SRIDEVI HI Room: [address] IN [facility].#: [id number] Admission: 12/26/17 Attend Phys: Gino Salas, Discharge: 01/05/18 Date of : 75 Report #: [id number] THIS REPORT FOR: //name// CC: ANNETTE physician/PCP Gino Salas DATE OF SERVICE: 12/28/2017 CONSULTATION: Podiatry. HISTORY OF PRESENT ILLNESS: A 42-year-old dialysis patient, admitted due to intractable abdominal pain with fluid retention with increased lower extremity edema. This has been a chronic problem with several hospital admissions. Upon admission, he was noted to have a diabetic foot ulceration to the left plantar fifth metatarsal head region. The patient states the wound has been present for roughly 2 weeks. He relates prior resection of the distal fifth metatarsal roughly [address] Greg Hannah in [place], [place]. He says the wound has been healed for roughly the last 1 year, until it recently opened roughly 2 weeks ago. He denies any trauma or change in shoes to the area. It does not appear he has been offloading the area or even dressing the wound. He states his mother purchased him a new pair of [employer] athletic shoes. He has not been seeking any medical care for the wound. He has profound peripheral sensory neuropathy, he denies pain to either extremity or the wound area. He dialyzes Jess, and Thursday. Arterial Doppler result is pending. MRI of the left foot is suggestive of acute osteomyelitis to the distal aspect of the remaining fifth metatarsal with fluid collection indicative of abscess at the plantar aspect. He had a one-time dose of vancomycin 1 gram IV. He was previously on oral cephalexin. He has been afebrile, denies fevers, chills, nausea or malaise. I reviewed the patient's social and medical history in the electronic medical record. LABORATORY DATA: WBC 7.5, RBC 2.41, hemoglobin 7.6, hematocrit 22.9, platelets 230. BUN 69, creatinine 8.0, albumin 2.7. PHYSICAL EXAMINATION: Ulceration to the plantar aspect of the left fifth MTP region measures 2.5 x 2.5 x 0.2 cm. There is a red granulation with underlying bogginess. There is no tunneling or undermining. There is no crepitation. Low grade inflammation with no dora cellulitis. The fifth toe is intact. Both legs are extremely edematous, I am unable to palpate his pedal pulses. His feet are cold to touch, there is no pallor or cyanosis. IMPRESSION: Ulceration, left plantar fifth metatarsophalangeal region with radiographic findings suggestive of acute osteomyelitis. PLAN: I reviewed the MRI report and reviewed the images. There is some increased uptake to the distal fifth metatarsal stump [place] [address] CONSULTATION Name: SRIDEVI HI Room: [address] IN M..#: [id number] Admission: 12/26/17 Attend Phys: Gino Salas, Discharge: 01/05/18 Date of : 75 Report #: [id number] just plantar to this suggestive of an abscess or perhaps an adventitial bursa. I also reviewed the plain film radiographs, which show slight periosteal reaction to the surgical resection margin of the fifth metatarsal head transection site. There is no gas in the soft tissues. Given the clinical and radiographic appearance, it is unclear if there is osteomyelitis, or if the bone edema is reactive to the wound and associated trauma of ambulation. Since he has to dialyze tomorrow, and the clinical picture is stable, I will defer considering surgical debridement until Thursday. The patient will dialyze tomorrow, and by then I will have his arterial Doppler results. The patient may benefit from resection of the distal fifth metatarsal and fifth toe with bone and soft tissue cultures. The patient is currently anemic and on warfarin. We will await vascular results and reconsider treatment options tomorrow. <ELECTRONICALLY SIGNED> By: Harvey Holland DPM 01/13/18 1347 1710 2039Harvey Holland DPM /nt
--- NOTE | 2018-01-13 13:47 | CON ---
[address] [address] CONSULTATION Name: SRIDEVI HI Room: [address] IN M.R.#: [id number] Admission: 12/26/17 Attend Phys: Gino Salas, Discharge: 01/05/18 Date of : 75 Report #: [id number] THIS REPORT FOR: //name// CC: ANNETTE physician/PCP Gino Salas DATE OF SERVICE: 01/03/2018 CHIEF COMPLAINT: Status post resection, left distal fifth metatarsal and toe for nonhealing ulceration, possible osteomyelitis. Surgical pathology is pending. Surgical bone and tissue cultures are pending. He is on parenteral vancomycin with dialysis. He feels well, relates mild pain to the left lower extremity. He is partial weightbearing in a surgical shoe, using a walker for short distances and transfers. He dialyzes Thursday, and Thursday. LABORATORY DATA: WBC 6.7, RBC 2.49, hemoglobin 7.7, hematocrit 23.4, platelets 171. BUN 32, creatinine 5.0, glucose 109. PHYSICAL EXAMINATION: The nurse changed the bandage earlier today because it became loose. Upon discussion, the incision was well coapted with minimal inflammation and no necrosis. Scant drainage noted on his bandage. His toes have immediate digital capillary refill. PLAN: Continue current course, we will have dressings changed 3 times a week upon hospital discharge. We will follow up with him at [facility] every Thursday afternoon with Dr. Wylie. <ELECTRONICALLY SIGNED> By: Harvey Holland DPM 01/13/18 1347 1140 1853Daudelia Holland DPM /nt
--- NOTE | 2018-01-13 13:47 | CON ---
[address] [address] CONSULTATION Name: SRIDEVI HI Room: [address] IN .R.#: [id number] Admission: 12/26/17 Attend Phys: Gino Salas, Discharge: 01/05/18 Date of : 75 Report #: [id number] THIS REPORT FOR: //name// CC: ANNETTE physician/PCP Gino Salas DATE OF SERVICE: 12/29/2017 CHIEF COMPLAINT: Diabetic ulceration to left plantar fifth MTP with likely osteomyelitis per radiographic, per x-ray and MRI findings. HISTORY OF PRESENT ILLNESS: The patient would like surgical resection of the remaining distal aspect of the fifth metatarsal. He does not want to treat the wound conservatively at this point. He wants surgery with pathology and cultures to ascertain whether in fact he has osteomyelitis or not. I explained to him that I cannot be certain he does have infection of the bone. I explained that there is a possibility he could have reactive bone marrow edema from the underlying wound and soft tissue infection, although I feel surgery is warranted at this point given the clinical and radiographic findings. He feels well, had paracentesis performed yesterday with roughly 2600 mL removed. He feels better with no abdominal pain. He denies foot pain, though he has advanced diabetic peripheral sensory neuropathy. PHYSICAL EXAMINATION: Ulceration is relatively unchanged since yesterday. There is pale granulation with some overlying slough to the plantar fifth metatarsal wound. Low grade localized inflammation with no dora cellulitis. Advanced edema to both lower extremities. Faintly palpable dorsalis pedis and posterior tibial pulses. No pallor, cyanosis or signs of acute vascular embarrassment. IMPRESSION: Ulceration, left plantar fifth metatarsophalangeal with likely osteomyelitis. Prior surgical debridement to consist of resection distal fifth metatarsal head roughly 2 years ago. PLAN: The patient would like to proceed with surgical resection of the distal fifth metatarsal and fifth toe. I think it is reasonable given the clinical and radiographic findings. His arterial Doppler ultrasound showed no evidence of arterial stenosis to the left thigh. The proximal portions of the posterior tibial artery and the anterior tibial artery were poorly visualized secondary to leg edema. His ABIs were normal at 0.89, but may be falsely elevated due to calcific sclerosis. There is evidence of a moderately severe right superficial femoral arterial stenosis. We will plan surgical resection tomorrow. <ELECTRONICALLY SIGNED> By: Harvey Holland DPM 01/13/18 1347 2042 0200Harvey Holland DPM /nt
--- NOTE | 2018-01-13 13:47 | CON ---
[address] [address] CONSULTATION Name: SRIDEVI HI Room: [address] IN M.R.#: [id number] Admission: 12/26/17 Attend Phys: Gino Salas, Discharge: 01/05/18 Date of : 75 Report #: [id number] THIS REPORT FOR: //name// CC: [facility] physician/PCP Gino Salas HISTORY OF PRESENT ILLNESS: The patient said he is post resection left distal fifth metatarsal with nonhealing plantar ulceration. He is on parenteral vancomycin with dialysis with good tolerance. Surgical bone and tissue culture is pending. He feels well. No fevers or constitutional symptoms. Likely home discharge tomorrow. He is partial weightbearing in a surgical shoe for transfers. I discussed with the wound nurse, who changed his bandage today. The incision was well coapted and the plantar wound had no necrosis or active bleeding. I will see the patient next week at [facility]. <ELECTRONICALLY SIGNED> By: Harvey Holland DPM 01/13/18 1347 1620 2340Harvey Holland DPM /nt
--- NOTE | 2018-01-13 13:47 | CON ---
[address] [address] CONSULTATION Name: SRIDEVI HI Room: [address] IN M.R.#: [id number] Admission: 12/26/17 Attend Phys: Gino Salas, Discharge: 01/05/18 Date of : 75 Report #: [id number] THIS REPORT FOR: //name// CC: ANNETTE physician/PCP Gino Salas DATE OF SERVICE: 01/04/2018 CHIEF COMPLAINT: Status post resection left distal fifth metatarsal for a nonhealing ulceration and possible osteomyelitis. HISTORY OF PRESENT ILLNESS: He is on parenteral vancomycin with dialysis. Surgical bone and tissue cultures have no growth. Surgical pathology is pending. He is scheduled for discharge tomorrow post-dialysis. He feels well, good appetite, denies fevers, chills, nausea or malaise. Denies abdominal pain. LABORATORY DATA: No new labs for review. PHYSICAL EXAMINATION: The dressing is dry, clean and intact. It was changed earlier today by the nursing staff. Upon discussion, there are no signs of necrosis or dehiscence. PLAN: I will follow up with the patient next Thursday at [facility] with Dr. Wylie. May bear partial weight to the foot in a surgical shoe for short distances and transfers only. Encouraged to rest, elevate the foot and maximize glycemic control. Antibiotics per Infectious Diseases. <ELECTRONICALLY SIGNED> By: Harvey Holland DPM 01/13/18 0847 1241 2025Harvey Holland DPM /carol
--- NOTE | 2018-01-13 13:47 | OP ---
[address] [address] OPERATIVE REPORT Name: SRIDEVI HI Room: [address] IN .R.#: [id number] Admission: 12/26/17 Attend Phys: Gino Salas, Discharge: 01/05/18 Date of : 75 Report #: [id number] THIS REPORT FOR: //name// CC: ANNETTE physician/PCP Gino Salas DATE OF SERVICE: 12/30/2017 SURGEON: Harvey Holland DPM. PREOPERATIVE DIAGNOSIS: Nonhealing ulceration with radiographic findings consistent with osteomyelitis to left distal fifth metatarsal. POSTOPERATIVE DIAGNOSIS: Nonhealing ulceration with radiographic findings consistent with osteomyelitis to left distal fifth metatarsal. PROCEDURES: 1. Left partial fifth ray resection. 2. Pedicle skin flap, left foot. 3. Incision and drainage, left foot. ANESTHESIA: MAC. INJECTABLES: 20 mL of a 1:1 mixture of 0.5% Marcaine plain and 1% lidocaine plain. ESTIMATED BLOOD LOSS: Roughly 100 mL. HEMOSTASIS: Left ankle pneumatic tourniquet at 250 mmHg. SUTURES: 3-0 nylon. SPECIMENS: Left distal fifth metatarsal and fifth toe. CULTURES: 1. Bone, left distal fifth metatarsal, aerobic and anaerobic. 2. Soft tissue, left foot, aerobic and anaerobic. COMPLICATIONS: None. DESCRIPTION OF PROCEDURE: The patient was brought to the OR and placed on the table supine with induction of MAC anesthesia. A well-padded left ankle pneumatic tourniquet was placed and local anesthetic block to the left foot. Extremity was prepped and draped aseptically. The foot was exsanguinated with inflation of the tourniquet. A #10 surgical blade was used to create dorsal lateral incision of the distal left fifth metatars[place] [address] OPERATIVE REPORT Name: SRIDEVI HI Room: [address]#: [id number] Admission: 12/26/17 Attend Phys: Gino Salas, Discharge: 01/05/18 Date of : 75 Report #: [id number] circumferentially around the fifth MTP joint. Layered anatomic dissection utilized with electrocautery. The fifth toe was disarticulated at the MTP with no signs of purulence at this level. The stump of the fifth metatarsal was with no lysis or visible necrosis. There is no purulence or drainage or signs of septic arthrosis. The distal fifth metatarsal had previously been surgically resected roughly 2 years ago and had typical postoperative finding. There is bone hypertrophy at the surgical resection site, which was directly overlying the plantar wound. I transected the metatarsal roughly detention at the diaphyseal region and submitted a portion of bone for culture and the rest for pathology along with the fifth toe. Soft tissue was debrided and a lateral flap was mobilized medially and sutured with 3-0 nylon. I did irrigate the wound with 1 liter of sterile saline with bacitracin irrigant. The plantar wound was then excised and packed with Aquacel Ag and Aquacel Ag was placed along the incision. Foot was cleansed and dried and a sterile compressive bandage with fluffs, ABDs, Kerlix and Samson were applied. The patient left the OR alert and oriented with no pain or complications noted. <ELECTRONICALLY SIGNED> By: Harvey Holland DPM 01/13/18 1347 21 2155Dacarlos Holland DPM /nt
--- NOTE | 2018-01-13 13:47 | CON ---
[address] [address] CONSULTATION Name: SRIDEVI HI Room: [address] IN ..#: [id number] Admission: 12/26/17 Attend Phys: Gion Salas, Discharge: 01/05/18 Date of : 75 Report #: [id number] THIS REPORT FOR: //name// CC: ANNETTE physician/PCP Primary Care Physician Gino Salas DATE OF SERVICE: 01/02/2018 CHIEF COMPLAINT: Status post resection, left distal fifth metatarsal for nonhealing ulceration and possible osteomyelitis. Surgical pathology and cultures are pending. He is on parenteral vancomycin with dialysis. He has been afebrile with no constitutional symptoms. He relates decreased pain, appetite improved. He dialyzes later today. LABORATORY DATA: WBC 7.0, RBC 2.28, hemoglobin 7.3, hematocrit 21.3, platelets 161. BUN 52, creatinine 7.1, glucose 127. PHYSICAL EXAMINATION: The incision is well coapted with minimal inflammation, and no dora cellulitis. There is no pallor, cyanosis or signs of acute vascular embarrassment. The plantar ulceration measures 1.2 x 1.0 x 0.3 cm and has increased red granulation with some overlying slough. No underlying fluctuance or crepitation, advanced venous insufficiency noted. IMPRESSION: Status post left distal fifth ray resection for nonhealing ulceration complicated by type 2 diabetes mellitus and end-stage renal disease, on dialysis. PLAN: Excisional ulcer debridement with forceps and scissors to remove subcutaneous tissue from the wound bed. The wound and incision were cleansed and Aquacel Ag were placed in the wound and along the incision with sterile compressive bandage. The patient may bear weight to the foot in a surgical shoe for transfers only. I will follow up with him during his hospitalization. <ELECTRONICALLY SIGNED> By: Harvey Holland DPM 01/13/18 1347 1241 1829Dacarlos Holland DPM /nt
--- NOTE | 2018-01-29 10:09 | PATH ---
[address] [address] PATHOLOGY RPT PROCEDURE Name: SRIDEVI ORONA Room: [address] IN M.R.#: [id number] Admission: 12/26/17 Date of : 75 Discharge: 01/05/18 Report #: [id number] Path Case #: [id number] [facility] Accession Number: [id number] . 01 Material submitted: . LEFT DISTAL 5TH METATARSAL AND TOE . 01 Clinical history: . Osteomyelitis left fifth metatarsal . 02 Diagnosis: Left distal fifth metatarsal and toe: - Benign toe including phalangeal bones and separate benign metatarsal segment with evidence of osteomyelitis at distal aspect and with proximal transection margin free of involvement. (BERTRAM:pit; 01/05/2018) QTP/01/05/2018 . 02 Electronically signed: . Javan Orona MD, Pathologist NPI- [id number] . 01 Gross description: . The specimen is received in formalin, labeled" Sridevi Orona and left distal fifth metatarsal and toe", are two portions: One a metatarsal bone measuring 3.2 cm in length and up to 1.5 cm in diameter. One end of this is a smooth/flat resection margin (inked blue) and the opposite is convex with attached soft tissue. This segment is bisected to show a barker-yellow, grossly unremarkable bone. The second portion is a distal portion of digit measuring 5.5 cm in length and up to 1.7 cm in width. One end of this is concave, covered with hernandez-white cartilage and the opposite consists of hernandez-white crusted nail. The skin is barker-white with no distinct visible lesion. This segment is bisected (easy to cut) to show a barker-red and trabeculated bone and surrounding hernandez-white soft tissue. Tank Processor sections are submitted as follows after decalcification: . A1-A2. Metatarsal bone, bisected (A1 = proximal margin inked blue and A2 opposite convex surface) A3-A4. Distal digit, bisected (A3 = concave surface and A4 =distal end with nail) . (SWS; 12/31/2017) SHS/ . 02 Pathologist provided ICD-10: M86.8X7 . 02 [place] [address] PATHOLOGY RPT PROCEDURE Name: SRIDEVI ORONA Room: [address] IN M.R.#: [id number] Admission: 12/26/17 Date of : 75 Discharge: 01/05/18 Report #: [id number] Path Case #: [id number] [facility] . [id number], [id number] Performed at: 01 [facility] [address], [place], [place] [address] MD Pascual Reddy MD Phone: [phone] Performed at: 02 [facility] [address], [place], [place] [id number] MD Javan Orona MD Phone: [phone]
== END 2018-01-05 16:10 | disposition home or self-care (01) | DRG 623 ==
LOC: M.ERS 10:44 → M.TBA-ER 13:31 → M.2W 13:31
PROVIDERS: Emergency Medicine Emergency Medical Services; Internal Medicine; Internal Medicine Gastroenterology; Internal Medicine Infectious Disease; ADMIT Family Medicine
PROC: 5A1D70Z Performance of Urinary Filtration, Intermittent, Less than 6 Hours Per Day (ICD-10-PCS; principal; 2017-12-26)
PROC: 0W9G3ZZ Drainage of Peritoneal Cavity, Percutaneous Approach (ICD-10-PCS; 2017-12-28)
PROC: 5A1D70Z Performance of Urinary Filtration, Intermittent, Less than 6 Hours Per Day (ICD-10-PCS; 2017-12-29)
PROC: 0QBP0ZZ Excision of Left Metatarsal, Open Approach (ICD-10-PCS; 2017-12-30)
PROC: 0JBR0ZZ Excision of Left Foot Subcutaneous Tissue and Fascia, Open Approach (ICD-10-PCS; 2018-01-02)
PROC: 5A1D70Z Performance of Urinary Filtration, Intermittent, Less than 6 Hours Per Day (ICD-10-PCS; 2018-01-05)
DX: E11.69 Type 2 diabetes mellitus with other specified complication (principal); I12.0 Hypertensive chronic kidney disease with stage 5 chronic kidney disease or end stage renal disease; R18.8 Other ascites; R65.10 Systemic inflammatory response syndrome (SIRS) of non-infectious origin without acute organ dysfunction; M86.172 Other acute osteomyelitis, left ankle and foot; L03.116 Cellulitis of left lower limb; N18.6 End stage renal disease; I70.201 Unspecified atherosclerosis of native arteries of extremities, right leg; R59.9 Enlarged lymph nodes, unspecified; D63.1 Anemia in chronic kidney disease; I27.20 Pulmonary hypertension, unspecified; J44.9 Chronic obstructive pulmonary disease, unspecified; I35.8 Other nonrheumatic aortic valve disorders; E87.5 Hyperkalemia; E11.22 Type 2 diabetes mellitus with diabetic chronic kidney disease; E11.40 Type 2 diabetes mellitus with diabetic neuropathy, unspecified; E11.621 Type 2 diabetes mellitus with foot ulcer; L97.529 Non-pressure chronic ulcer of other part of left foot with unspecified severity; K21.9 Gastro-esophageal reflux disease without esophagitis; F17.210 Nicotine dependence, cigarettes, uncomplicated; Z99.2 Dependence on renal dialysis; Z79.01 Long term (current) use of anticoagulants; Z79.899 Other long term (current) drug therapy; Z83.6 Family history of other diseases of the respiratory system

== ENCOUNTER 2018-03-09 12:16 | Inpatient (IN) | payer MEDICARE, MEDICAID ==
[~2018-03-09] VITALS: Ht 182.9 cm; Wt 120.5 kg
[~2018-03-09 12:16] MED LIST changes: +OXYCODONE HCL 55 MG PO; +VANC750 IV
[2018-03-09 12:21] VITALS: BP 183/78
[2018-03-09] MEDS ORDERED: DURAGESIC1 EAC3 TRANSDERM (12:22)
[2018-03-09] MEDS ORDERED: NEPHROCAPS SOFT1 CAP PO (12:23)
[2018-03-09] MEDS ORDERED: ONDANSETRON HCL4 M2 PO (12:23)
[2018-03-09] MEDS ORDERED: VITAMIN D1000 UNI1 PO (12:23)
[2018-03-09 13:04] LABS: ABSOLUTE BASOPHILS 0.1 thou/uL (0.0-0.2); ABSOLUTE EOSINOPHILS 0.4 thou/uL (0.0-0.7); ABSOLUTE LYMPHOCYTES 0.7 thou/uL (0.8-5.3); ABSOLUTE MONOCYTES 0.7 thou/uL (0.0-1.2); ABSOLUTE NEUTROPHILS 3.4 thou/uL (1.6-8.1); BASOPHILS 1.1 %; EOSINOPHILS 8.1 %; HEMATOCRIT 27.7 % (42.0-52.0); LYMPHOCYTES 13.4 %; MCH 29.8 pg (26.0-34.0); MCHC 32.5 g/dL (28.0-37.0); MCV 91.5 fL (80.0-100.0); MPV 6.1 fl. (7.2-11.1); NUCLEATED RBCS 0 /100WBC; PLATELET COUNT* 180 thou/uL (150-400); POLYS 63.4 %; RBC 3.02 mil/uL (4.50-6.00); RDW-CV 17.8 % (10.5-14.5); WBC 5.3 thou/uL (4.0-11.0)
[2018-03-09 13:09] LABS: ANION GAP 6 mmol/L (7-16); BUN 36 mg/dL (7-18); CALCIUM 8.9 mg/dL (8.5-10.1); CHLORIDE 96 mmol/L (98-107); CO2 33 mmol/L (21-32); CREATININE 5.6 mg/dL (0.6-1.3); GLUCOSE 135 mg/dL (70-99); POTASSIUM 4.4 mmol/L (3.5-5.1); SODIUM 135 mmol/L (136-145)
[2018-03-09 13:13] LABS: APTT 48.5 Seconds (25.0-31.3); INR 1.3; PROTIME 13.2 Seconds (9.20-11.50)
[2018-03-09 13:20] LABS: ALBUMIN 2.9 g/dL (3.4-5.0); ALKALINE PHOSPHATASE 171 U/L (46-116); NT-PRO BRAIN NAT PEPTIDE > 35000 pg/mL (<300); SGOT 29 U/L (15-37); SGPT 15 U/L (30-65); TOTAL BILIRUBIN 0.8 mg/dL (<0.1-1.0); TOTAL PROTEIN 8.4 g/dL (6.4-8.2); TROPONIN-I LEVEL <0.06 ng/mL (<0.06)
[2018-03-09 13:25] LABS: PCO2 VENOUS 41.9 mmHg (41.0-51.0); PO2 VENOUS 37.3 mmHg (35.0-45.0)
[2018-03-09 13:26] LABS: BE 3.6 mmol/L (-2 to +3)
--- NOTE | 2018-03-09 15:34 | EKG ---
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: Carmenza WILKINSON : 1975 Requested By: Daniela Velez Order Number: [id number] MD: Mat Pena Measurements Intervals [place] Rate: 93 P: 43 CT: 197 QRS: 36 QRSD: 82 T: 30 QT: 363 QTc: 452 Interpretive Statements Sinus rhythm Borderline prolonged CT interval Possible left atrial enlargement Compared to ECG 12/26/2017 10:59:02 No significant changes Electronically Signed On 03-09-2018 15:34:05 CDT by Mat Pena [email or web address] <ELECTRONICALLY SIGNED> By: Mat Pena MD, [facility] 03/09/18 1534 1218 1218 Mat Pena MD, [facility] /EPI
[2018-03-09 15:48] VITALS: BP 136/70
[2018-03-09 16:16] VITALS: BP 144/77
--- NOTE | 2018-03-09 17:05 | NUR ---
PATIENT CAME TO THE FLOOR TODAY FROM THE ER IN STABLE CONDITION. COMPLAINTS OF PAIN IN ABDOMEN AND BILATERAL LOWER LEGS. AMBULATED FINE TO THE BED AND RESTROOM. ADMISSION ASSESSMENT AND ROOM ORIENTATION DONE FOR PATIENT WITH QUESTIONS ANSWERED FOR PATIENT. PHOTOS TAKEN OF BILATERAL LOWER LEGS. CALL LIGHT IS IN REACH, WILL CONTINUE TO MONITOR.
--- NOTE | 2018-03-09 18:31 | NUR ---
PATIENT HAS BEEN ALERT AND ORIENTED SINCE ARRIVING TO THE FLOOR FROM THE ER. COMPLAINS OF PAIN IN ABDOMENT AND LEGS. PATIENT RESTED SOME AFTER GETTING IV PAIN MEDICATIONS. PHOTOS TAKEN OF WOUNDS ON BILATERAL LATERAL LEGS. VITAL SIGNS STABLE ON ROOM AIR. RENAL DIET ORDERED FOR PATIENT BUT WILL PASS ON IN REPORT THAT PATIENT SHOULD PROBABLY BE NPO FOR PARACENTESIS TOMORROW. CALL LIGHT IS IN REACH, WILL CONTINUE TO MONITOR.
[2018-03-09 20:00] VITALS: BP 152/82
[2018-03-10 00:01] VITALS: BP 145/79
[2018-03-10 04:00] VITALS: BP 144/75
[2018-03-10 04:51] LABS: ABSOLUTE BASOPHILS 0.1 thou/uL (0.0-0.2); ABSOLUTE EOSINOPHILS 0.3 thou/uL (0.0-0.7); ABSOLUTE LYMPHOCYTES 0.8 thou/uL (0.8-5.3); ABSOLUTE MONOCYTES 0.7 thou/uL (0.0-1.2); ABSOLUTE NEUTROPHILS 3.4 thou/uL (1.6-8.1); BASOPHILS 1.1 %; EOSINOPHILS 6.5 %; HEMATOCRIT 26.9 % (42.0-52.0); HEMOGLOBIN 8.8 gm/dL (14.0-18.0); LYMPHOCYTES 15.2 %; MCH 30.1 pg (26.0-34.0); MCHC 32.8 g/dL (28.0-37.0); MCV 91.7 fL (80.0-100.0); MPV 6.4 fl. (7.2-11.1); NUCLEATED RBCS 0 /100WBC; PLATELET COUNT* 178 thou/uL (150-400); POLYS 63.2 %; RBC 2.94 mil/uL (4.50-6.00); WBC 5.3 thou/uL (4.0-11.0)
[2018-03-10 05:05] LABS: CALCIUM 8.7 mg/dL (8.5-10.1); POTASSIUM 4.9 mmol/L (3.5-5.1)
--- NOTE | 2018-03-10 06:58 | NUR ---
PATIENT RESTED IN BED, NO ACUTE CHANGES. FALL PRECAUTIONS IN PLACE, HOURLY ROUNDING, CALL LIGHT WITH IN REACH.
--- NOTE | 2018-03-10 07:30 | NUR ---
PATIENT HAS BEEN NPO OVER NIGHT FOR PRECEDURE.
[2018-03-10 08:15] VITALS: BP 133/74
--- NOTE | 2018-03-10 12:04 | NUR ---
Pt is A&O. Resides at home with his mom. Known to this CM from previous hospital stays. No DME. No hx of HH or SNF. [facility] Goal is home at sd. CM to fax flowsheets at [facility]. Following.
[2018-03-10 13:01] VITALS: BP 143/83
--- NOTE | 2018-03-10 13:27 | NUR ---
WOUND CARE NOTE: CONSULT RECEIVED FOR WOUNDS LOWER LEGS PATIENT PRESENTS WITH MULTIPLE AREAS OF STABLE SCABS TO BILATERAL LOWER LEGS. PATIENT ALSO HAS WHAT APPEARS TO BE CHRONIC VENOUS STASIS CHANGES. 3-4+ EDEMA. INQUIRED IF PATIENT WEARS COMPRESSION AT HOME. ADMITS THAT HE DOES, BUT HASN'T BEEN RECENTLY DUE TO THE SCABS. PATIENT ON HIS WAY TO DIALYSIS. RECOMMEND ELEVATE BLE VASELINE GAUZE/XEROFORM GAUZE OVER SCABS. KERLIX AND TRISHA WRAPS TIGHT BLOOD GLUCOSE CONTROL
[2018-03-10 14:18] LABS: BF LYMPHOCYTES 33 %; BF MONOCYTES 4 %; BF POLYS 62 %; BF TISSUE 2 /100 WBC; BODY FLUID BANDS 1 %; CLARITY HAZY; COLOR AMBER; SOURCE ASCITES; TOTAL VOLUME 5660 ml
[2018-03-10 14:19] LABS: BF RBC 1050 /mm3; TOTAL CELL COUNT 463 /mm3
[2018-03-10 16:30] VITALS: BP 125/126
[2018-03-10 20:24] VITALS: BP 144/75
[2018-03-11] VITALS: BP 159/70
[2018-03-11 04:00] VITALS: BP 132/70
--- NOTE | 2018-03-11 05:12 | NUR ---
PT IS ABLE TO COMMUNICATE HIS NEEDS TO STAFF EFFECTIVELY. CURRENT PAIN MEDICATION REGIMEN HAS BEEN ADEQUATE FOR CONTROLLING HIS PAIN UP TO THIS TIME; PT DOES ASK FOR ADDITIONAL PAIN MEDS BEFORE THEY ARE DUE. LEFT ARM FISTULA. 1500ML FLUID RESTRICTION MAINTAINED. PT IS RECEIVING HEMODIALYSIS WHILE HOSPITALIZED AND IS ON A THU, , THURSDAY SCHEDULE WHEN AT HOME.
[2018-03-11 08:00] VITALS: BP 128/73
[2018-03-11] MEDS ORDERED: CEFPODOXIME PR200 M1 PO (10:17)
[2018-03-11] MEDS ORDERED: OXYCODONE HCL 55 MG PO (10:18)
[2018-03-11 12:04] VITALS: BP 128/73
--- NOTE | 2018-03-11 13:07 | NUR ---
PT BACK FROM DIALYSIS. TOLERATED WELL. ASKING FOR PAIN MEDS
[2018-03-11 13:09] LABS: BODY FLUID LDH 128 IU/L (()); BODY FLUID PROTEIN 4.5 g/dL (())
--- NOTE | 2018-03-11 13:25 | NUR ---
COPYING MACHINE REPAIRER SPOKE TO YULIYA WITH [facility] TO INFORM OF THE PATIENT'S DISCHARGE [facility]. COPYING MACHINE REPAIRER FAXED LANEY THE PATIENT'S FLOW SHEETS. CM WILL REMAIN AVAILABLE TO ASSIST AND FOLLOW NEEDED.
[2018-03-11 16:12] VITALS: BP 128/73
[2018-03-12 07:44] LABS: SOURCE ABDOMINAL
--- NOTE | 2018-03-12 14:14 | CON ---
[address] [address] CONSULTATION Name: SRIDEVI HI Room: [address] IN .R.#: [id number] Admission: 03/09/18 Attend Phys: Uvaldo Vyas MD Discharge: 03/11/18 Date of : 75 Report #: [id number] THIS REPORT FOR: //name// CC: Uvaldo Vyas Gilbert Jacques DATE OF SERVICE: 03/10/2018 REASON FOR CONSULTATION: Ascites and lymphadenopathy. SUBJECTIVE: A 42-year-old male who was admitted because of progressive abdominal pain and recurrent ascites. Previously per the records, he has been going to [facility], and he had multiple paracenteses, which came back negative. He is following with his pain physician at [place]. He did not have any recent fevers, night sweats, weight loss or fatigue; however, in his previous CT scans, the patient was found to have hepatosplenomegaly, fatty liver infiltrates, and most recent CT scan yesterday showed paraaortic lymphadenopathy measuring 2 cm. There are additional bilateral enlarged nodes in the groin area measuring 2.5 cm in size. In addition to that, he has large ascites. The patient stated that he drinks alcohol on a daily basis. He has plans for paracentesis today. He continues to be on dialysis, following Dr. Love. REVIEW OF SYSTEMS: All systems were reviewed, was negative except the above. PAST MEDICAL HISTORY: End-stage renal disease, on dialysis; diabetes mellitus and hypertension. MEDICATIONS: Per admission list. ALLERGIES: No known allergies. SOCIAL HISTORY: He is not a smoker; however, he drinks alcohol on a daily basis around 2 beers for more than 10 years per the patient. PHYSICAL EXAMINATION: VITAL SIGNS: Today, temperature is 37.1, pulse 98, respirations 17, blood pressure is 144/75, SpO2 was 92% on room air. GENERAL: The patient was lying in bed. He was not in acute distress. LUNGS: Clear to auscultations bilaterally; however, decreased breathing sounds. No wheezing, no rales. ABDOMEN: Significant ascites. Groin area, I was able to palpate too hard, but smooth border lymph nodes. EXTREMITIES: Extensive edema. LABORATORY DATA: Today, WBC is 5.3, hemoglobin 8.8, platelets 178. PT 13.2, [place] [address] CONSULTATION Name: SRIDEVI HI Room: [address]#: [id number] Admission: 03/09/18 Attend Phys: Uvaldo Vyas MD Discharge: 03/11/18 Date of : 75 Report #: [id number] PTT 48.5. Creatinine 7.0, ALT is 15, AST 29, alkaline phosphatase 171. IMAGING: Venous Doppler showed no DVT. Chest x-ray showed no acute cardiopulmonary process identified. CT scan of the abdomen and pelvis showed large lymph nodes on both groin areas with paraaortic nodes. There is also diffuse ascites was found. ASSESSMENT AND PLAN: A 42-year-old male, who has diabetes, hypertension, end-stage renal disease, heavy drinker, who presented with recurrent ascites and large lymphadenopathy. RECOMMENDATIONS: 1. I would like to agree with paracentesis and send for cytology. 2. We will ask Interventional Radiology for lymph node biopsy to rule out any possibility of lymphoma or any other malignant process. We will follow the patient. I would like to obtain CT chest to rule out any possibilities of any other lymphadenopathy. We will follow the patient during hospitalization. <ELECTRONICALLY SIGNED> By: South Jung MD 03/12/18 1414 0828 1903South Jung MD /nt
--- NOTE | 2018-03-12 18:07 | PATH ---
[address] [address] PATHOLOGY RPT PROCEDURE Name: SRIDEVI HI Room: [address] IN [facility]#: [id number] Admission: 03/09/18 Date of : 75 Discharge: 03/11/18 Report #: [id number] Path Case #: [id number] Note [facility] Accession Number: [id number] TESTS RESULT FLAG UNITS REF RANGE LAB Clinician Provided Cytology Information No. of containers..01 Other (Miscellaneous) Source: ASCITES DIAGNOSIS: 02 ASCITES NEGATIVE FOR MALIGNANT CELLS. SCANT CELLULARITY. MESOTHELIAL CELLS AND FEW INFLAMMATORY CELLS ARE PRESENT. THIS INTERPRETATION INCLUDES EVALUATION OF A CELL BLOCK. Signed out by: 02 Javan Hi MD, Pathologist NPI- [id number] Performed by: 01 Devaughn Mcdonald, Filler Shredder Helper ([facility]) Gross description: 01 21ML, YELLOW, CLOUDY /LCS FLAG LEGEND: L-Low Normal,H-High Normal,LL-Alert Low,HH-Alert High <-Panic Low,>-Panic High,A-Abnormal,AA-Critical Abnormal Performed at: [address] [place] [address] Pascual Reddy MD, [address] [place] [address] [address] [place] [address] Javan Hi MD, Performed at: [address], [place], [place] [id number] MD Pascual Reddy MD Phone: [phone]
--- NOTE | 2018-03-16 16:08 | PATH ---
[address] [address] PATHOLOGY RPT PROCEDURE Name: SRIDEVI ORONA Room: [address] IN M.R.#: [id number] Admission: 03/09/18 Date of : 75 Discharge: 03/11/18 Report #: [id number] Path Case #: [id number] [facility] Accession Number: [id number] . 01 Material submitted: . RIGHT GROIN LYMPH NODE . 01 Clinical history: . 4.1 x 1.5 x 3.6 cm separate sample in RPMI sent to [facility] for flow from [facility] . 02 Diagnosis: Lymph node, right groin, needle core biopsy: - Lymph node with reactive follicles, fibrosis, calcifications and focal subacute inflammation. Please see comment. (MYRNA:adrián; 03/15/2018) QMS/03/15/2018 . 02 Comment: Examination of the right groin lymph node shows reactive follicles, fibrosis, calcifications and focal subacute inflammation. Definite Arjun-Ever cells or metastatic carcinoma are not identified. Immunophenotypic studies by flow cytometry do not show evidence of a lymphoproliferative disorder (please see separate flow cytometry report from [facility] [id number]). The findings suggest a reactive lymph node. However, it should be noted that partially involved lymph node by malignancy or Hodgkin lymphoma in a background of reactive hyperplasia cannot be totally excluded due to sampling artifact. Excision of the lymph node is recommended if clinically suspicious. . Co-review: Dr. Javan Orona . (JMQ:[facility]; 03/15/2018) . This case was prepared and proofread by Dr. Mary Campbell and electronically released by Dr. Margarette Landeros. . 02 Electronically signed: . Margarette Landeros MD, Pathologist NPI- [id number] . 01 Gross description: . Received in formalin labeled "Sridevi Orona, right groin lymph node," are multiple needle core fragments ranging from 0.2 to 1.2 cm in length and measuring 0.1 cm each in diameter. The specimen is submitted entirely in cassettes A1 through A3. A portion of the specimen is submitted in RPMI solution from [facility] for flow cytometry. ([facility]; 03/11/2018) [place] [address] PATHOLOGY RPT PROCEDURE Name: SRIDEVI ORONA Room: [address] IN M.R.#: [id number] Admission: 03/09/18 Date of : 75 Discharge: 03/11/18 Report #: [id number] Path Case #: [id number] XDC/XDC . 02 Pathologist provided ICD-10: I88.1, R18.8, N18.6 . 02 CPT . 389620 Performed at: 01 [facility] [address] [place] [id number] MD Pascual Reddy MD Phone: [phone] Performed at: 02 [facility] [address] [id number] MD Anup Miller MD Phone: [phone]
--- NOTE | 2018-03-20 21:15 | CON ---
[address] [address] CONSULTATION Name: SRIDEVI HI Room: [address] IN .R.#: [id number] Admission: 03/09/18 Attend Phys: Uvaldo Vyas MD Discharge: 03/11/18 Date of : 75 Report #: [id number] THIS REPORT FOR: //name// CC: Dr. Uvaldo Salas DATE OF CONSULTATION: 03/10/2018 PRIMARY SITE AND HISTOPATHOLOGY: The patient has lymphadenopathy and I was consulted by the Emergency Room physician, Dr. Velez. REFERRING PHYSICIANS: Dr. Uvaldo Vyas; Dr. Luke Wylie, Dr. Harvey Tatum, Dr. Gino Salas. [facility] phone is [phone]. HISTORY OF PRESENT ILLNESS: The patient indicated that he had multiple visits to various hospitals in the area for cramping pain over the last 6 months. Previously, he had gone to [facility], [facility] and [facility]. He is dialysis dependent. He denied having any recent fevers or any significant night sweats or any weight loss. He had an abdominal/pelvic CT scan on 03/09/2018 and that revealed enlarged lymph nodes in the groin regions with some smaller periaortic lymph nodes. The radiology report indicated that processes such as lymphoma can be considered. The abdominal CT revealed diffuse ascites and the radiology report said one consideration could be peritoneal carcinomatosis, though there was no obvious tumor metastasis identified. There was diffuse anasarca. He had a previous paracentesis on 12/28/2017. The abdominal fluid was negative for malignant cells. The periaortic lymphadenopathy measured up to 2 cm in size and the lymphadenopathy in the groin region measured up to 2.5 cm in size. The patient is scheduled for a biopsy as an inpatient. I was consulted to evaluate the patient. 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 MEDICATIONS: Include folic acid, hydralazine, pantoprazole, ondansetron, 5 mg oxycodone as needed. FAMILY HISTORY: [place] [address] CONSULTATION Name: SRIDEVI HI Room: [address]#: [id number] Admission: 03/09/18 Attend Phys: Uvaldo Vyas MD Discharge: 03/11/18 Date of : 75 Report #: [id number] SOCIAL HISTORY: Cigarettes: Sometimes he occasionally smokes cigarettes. Ethanol: He does not drink beer. The admission intake note indicated that he has used methamphetamine in the past. REVIEW OF SYSTEMS: GENERAL: No fevers or chills. EYES: No visual changes or blurred vision. HEAD, EARS, NOSE AND THROAT: No trauma or headaches. CARDIOVASCULAR: No chest pain or palpitations. RESPIRATORY: No shortness of breath or cough. GASTROINTESTINAL: No abdominal pain. GENITOURINARY: No urgency or frequency. MUSCULOSKELETAL: The patient denied having any localized joint pain. PSYCHIATRIC: No anxiety or depression. ENDOCRINE: No night sweats. HEMATOLOGIC/IMMUNOLOGIC: No recent bleeding. NEUROLOGIC: No tingling or weakness. PHYSICAL EXAMINATION: VITAL SIGNS: Temperature was 98.6 degrees Fahrenheit, pulse 89, respirations 18, blood pressure 145/79. LYMPH NODES: He had no cervical or supraclavicular lymphadenopathy. Because of a distended abdomen, I could not appreciate enlarged lymph nodes in the inguinal area, though it was diffivult to palpate there because of the distended abdomen. GENERAL/PSYCHIATRIC: The patient was alert, oriented, and in no acute distress. EYES: Pupils were equal, round and reactive to light and accommodation. HEAD, EARS, NOSE AND THROAT: Mouth had no visible lesions. CARDIOVASCULAR: Heart had a regular rate and rhythm with a systolic ejection murmur. LUNGS: were clear to auscultation. ABDOMEN: Distended, had positive bowel sounds. No tenderness to palpation. EXTREMITIES: Had no clubbing, cyanosis, or edema. NEUROLOGIC: Cranial nerves II to XII were intact. Sensation was intact. LABORATORY DATA: From 03/10/2018, sodium 137, potassium 4.9, BUN 45, creatinine 7.0, magnesium 2.1, ALT 15 and from 03/10/2018, white blood count 5.3, hemoglobin 8.8, platelets are 70,000. ASSESSMENT AND PLAN: The patient has inguinal and lorrie-aortic lymphadenopathy on his CT scan. The etiology of the lymphadenopathy is not clear at this point. The lymphadenopathy could be reactive lymph nodes [place] [address] CONSULTATION Name: SRIDEVI HI Room: [facility] IN M.R.#: [id number] Admission: 03/09/18 Attend Phys: Uvaldo Vyas MD Discharge: 03/11/18 Date of : 75 Report #: [id number] malignancy such as lymphoma. The patient is scheduled for a biopsy. A management plan can be formulated, once the pathology is available from the biopsy. Thank you for this consult. <ELECTRONICALLY SIGNED> By: Harvey Jacobson MD 03/20/18 2115 1017 [id number] Jacobson MD /carol
--- NOTE | 2018-03-27 07:14 | CON ---
[address] [address] CONSULTATION Name: SRIDEVI HI Room: [address] IN M.R.#: [id number] Admission: 03/09/18 Attend Phys: Uvaldo Vyas MD Discharge: 03/11/18 Date of : 75 Report #: [id number] THIS REPORT FOR: //name// CC: Uvaldo Vyas Gilbert Jacques REASON FOR CONSULTATION: This is a consultation obtained by Dr. Vyas to provide dialysis for this end-stage renal disease patient is in the hospital. HISTORY OF PRESENT ILLNESS: The patient is a 42-year-old gentleman. He was sent to the ER from the dialysis unit yesterday. I was actually physically present in the unit when the patient showed up for dialysis. He was having significant abdominal pain with distention. He reported he needed paracentesis. The patient has had history of chronic abdominal pain, heavy use of narcotic medications and noncompliance in the past. He has had multiple admissions in the hospital for the same. He follows ____ in GI for the chronic abdominal pain and for his liver disease. He was only on dialysis for around an hour and did not complete his treatment. He was sent out for further management to the hospital. This morning he still continues to have significant pain. He is scheduled for a paracentesis later this afternoon. A CT of the abdomen was done and no acute findings were noted except for significant ascites. He has been afebrile overnight. PAST MEDICAL HISTORY: End-stage renal disease, on hemodialysis Thursday, and Thursday schedule; history of metabolic encephalopathy; history of opiate overdose and narcotic abuse in the past; history of pneumonias; ascites with recurrent paracentesis; hypertension and diabetes. HOME MEDICATIONS: Reviewed. He is on fentanyl patch, cholecalciferol, ondansetron, hydralazine 25 four times a day, sevelamer 800 three times a day, oxycodone, MiraLax, metoclopramide, amlodipine, Senokot, warfarin. PERSONAL AND SOCIAL AND FAMILY HISTORY: reviewed and unchanged. Has significant history of drug abuse in the past. REVIEW OF SYSTEMS: Appears uncomfortable because of abdominal pain. No fevers, no chills have been reported. No diarrhea, no chest pain or shortness of breath. PHYSICAL EXAMINATION: VITAL SIGNS: Blood pressure is 144/75, pulse is 98. He is afebrile. LUNGS: Diminished ____ bilaterally. ABDOMEN: [place] [address] CONSULTATION Name: SRIDEVI HI Room: [address]#: [id number] Admission: 03/09/18 Attend Phys: Uvaldo Vyas MD Discharge: 03/11/18 Date of : 75 Report #: [id number] SKIN: Markedly stretched. EXTREMITIES: Lower extremity exam shows 3 to 4+ pitting edema with multiple skin ulcerations and skin breakdown. NEUROLOGIC: Awake and alert and answers questions appropriately, but does appear restless because of the pain. LABORATORY DATA: White count is 5.3, hemoglobin is 8.8. Sodium is 137, potassium is 4.9, BUN is 45 and creatinine is 7. AST, ALT, alkaline phosphatase were reviewed. Albumin is 2.9. CT of the abdomen was reviewed. ASSESSMENT: 1. End-stage renal disease. 2. Recurrent ascites with requirement for paracentesis. 3. The patient is on hemodialysis on Thursday, and Thursday schedule. 4. Noncompliance with dialysis as well as medications. 5. Chronic narcotic abuse. 6. Anemia. 7. Hypoalbuminemia. 8. Significant fluid overload and edema. PLAN: 1. End-stage renal disease. The patient did not get his full treatment yesterday. We will schedule for treatment today and scheduled treatment tomorrow. 2. The patient will require paracentesis today. 3. Epogen for his anemia. 4. We will continue to follow during the hospital stay and provide necessary support. <ELECTRONICALLY SIGNED> By: Wan Lucero MD 03/27/18 0714 0828 [id number] Lucero MD /nt
== END 2018-03-11 16:50 | disposition home or self-care (01) | DRG 939 ==
LOC: M.ERS 12:16 → M.TBA-ER 15:05 → M.2W 15:05
PROVIDERS: Personal Emergency Response Attendant; ADMIT Internal Medicine
PROC: 5A1D70Z Performance of Urinary Filtration, Intermittent, Less than 6 Hours Per Day (ICD-10-PCS; principal; 2018-03-10)
PROC: 0W9G3ZZ Drainage of Peritoneal Cavity, Percutaneous Approach (ICD-10-PCS; principal; 2018-03-10)
PROC: 5A1D70Z Performance of Urinary Filtration, Intermittent, Less than 6 Hours Per Day (ICD-10-PCS; 2018-03-11)
PROC: 07BC3ZX Excision of Pelvis Lymphatic, Percutaneous Approach, Diagnostic (ICD-10-PCS; 2018-03-11)
DX: R18.8 Other ascites (principal); N18.6 End stage renal disease; I12.0 Hypertensive chronic kidney disease with stage 5 chronic kidney disease or end stage renal disease; E11.22 Type 2 diabetes mellitus with diabetic chronic kidney disease; G89.29 Other chronic pain; F17.210 Nicotine dependence, cigarettes, uncomplicated; R59.1 Generalized enlarged lymph nodes; D64.9 Anemia, unspecified; E88.09 Other disorders of plasma-protein metabolism, not elsewhere classified; F11.10 Opioid abuse, uncomplicated; Z91.15 Patient's noncompliance with renal dialysis; Z91.14 Patient's other noncompliance with medication regimen; Z99.2 Dependence on renal dialysis; Z79.4 Long term (current) use of insulin; Z79.899 Other long term (current) drug therapy; Z79.01 Long term (current) use of anticoagulants; Z87.01 Personal history of pneumonia (recurrent); Z89.612 Acquired absence of left leg above knee; Z80.0 Family history of malignant neoplasm of digestive organs